=== PATIENT | female | born 1940 | race Caucasian/White ===

== ENCOUNTER 2020-06-12 12:33 | Inpatient (IN) | payer MEDICARE, BC ==
--- NOTE | 2020-06-12 13:03 | ED ---
General Adult HPI - General Chief complaint: Fall Stated complaint: fall Time Seen by Provider: 06/12/20 12:38 Source: patient, RN notes reviewed, old records reviewed Mode of arrival: EMS Limitations: no limitations - History of Present Illness Initial comments: 79-year-old female presents status post fall with left hip pain. No anticoagulation. No head or neck trauma. No loss consciousness. Patient attempted to bear weight prior to transport. She was transported by EMS, she did not want pain medication. She states she has almost no pain as long as she lies still. No abdominal pain or chest pain. No other extremity injury. - Related Data Home Medications Medication Instructions Recorded Confirmed Anastrozole [Arimidex] 1 mg PO DAILY 06/12/20 06/12/20 Insulin Glargine,Hum.rec.anlog 20 unit SQ HS 06/12/20 06/12/20 [Lantus Solostar] lisinopriL [Zestril] 2.5 mg PO DAILY 06/12/20 06/12/20 sitaGLIPtin PHOS/metFORMIN HCL 1 tab PO BID 06/12/20 06/12/20 [Janumet 50-500 mg Tablet] Allergies Allergy/AdvReac Type Severity Reaction Status Date / Time No Known Allergies Allergy Verified 06/12/20 14:06 Review of Systems ROS Statement: Those systems with pertinent positive or pertinent negative responses have been documented in the HPI. ROS Other: All systems not noted in ROS Statement are negative. Past Medical History Past Medical History: Diabetes Mellitus History of Any Multi-Drug Resistant Organisms: None Reported Past Surgical History: No Surgical Hx Reported Past Anesthesia/Blood Transfusion Reactions: Unable to Obtain Past Psychological History: No Psychological Hx Reported Smoking Status: Never smoker Past Alcohol Use History: None Reported Past Drug Use History: None Reported General Exam Limitations: no limitations General appearance: alert, in no apparent distress Head exam: Present: atraumatic, normocephalic Eye exam: Present: normal appearance, PERRL ENT exam: Present: normal exam Neck exam: Present: normal inspection. Absent: tenderness, meningismus Respiratory exam: Present: normal lung sounds bilaterally. Absent: respiratory distress, wheezes Cardiovascular Exam: Present: regular rate, normal rhythm GI/Abdominal exam: Present: soft. Absent: distended, tenderness, guarding Extremities exam: Present: other (Distal pulses intact, range of motion of the left hip is limited secondary to pain) Neurological exam: Present: alert, oriented X3, CN II-XII intact. Absent: motor sensory deficit Psychiatric exam: Present: normal affect, normal mood Skin exam: Present: warm, dry, intact. Absent: cyanosis, diaphoretic Course Vital Signs 06/12/20 12:35 Temperature 97.4 F L Pulse Rate 83 Respiratory 16 Rate Blood Pressure 158/89 O2 Sat by Pulse 96 Oximetry EKG Findings - EKG Comments: EKG Findings:: EKG: Normal sinus rhythm, no ST segment elevation, rate of 80, GA interval 192, QRS duration 70, QTC 422 Medical Decision Making - Medical Decision Making 71-year-old female with fall, left hip pain. X-ray reveals a left subcapital femoral neck fracture. Laboratory studies are obtained, showing normal electro lytes, stable hemoglobin, normal CBC. Case discussed with Jyoti hogan for orthopedics, will admit with internal medicine on consult. Patient will be kept nothing by mouth. Multiple re-evaluations, patient is not requesting any pain medication she states she has no pain when there is no movement of the hip. - Lab Data Result diagrams: 06/12/20 12:51 06/12/20 12:51 Lab Results 06/12/20 06/12/20 06/12/20 Range/Units 12:51 12:51 12:51 WBC 9.9 (3.8-10.6) k/uL RBC 4.25 (3.80-5.40) m/uL Hgb 12.8 (11.4-16.0) gm/dL Hct 40.4 (34.0-46.0) % MCV 95.1 (80.0-100.0) fL MCH 30.0 (25.0-35.0) pg MCHC 31.5 (31.0-37.0) g/dL RDW 12.9 (11.5-15.5) % Plt Count 279 (150-450) k/uL Neutrophils % 72 % Lymphocytes % 20 % Monocytes % 5 % Eosinophils % 2 % Basophils % 0 % Neutrophils # 7.1 (1.3-7.7) k/uL Lymphocytes # 2.0 (1.0-4.8) k/uL Monocytes # 0.5 (0-1.0) k/uL Eosinophils # 0.2 (0-0.7) k/uL Basophils # 0.0 (0-0.2) k/uL PT 9.6 (9.0-12.0) sec INR 0.9 (<1.2) APTT 22.8 (22.0-30.0) sec Sodium 139 (137-145) mmol/L Potassium 4.6 (3.5-5.1) mmol/L Chloride 106 (98-107) mmol/L Carbon Dioxide 27 (22-30) mmol/L Anion Gap 6 mmol/L BUN 14 (7-17) mg/dL Creatinine 0.66 (0.52-1.04) mg/dL Est GFR (CKD-EPI)AfAm >90 (>60 ml/min/1.73 sqM) Est GFR (CKD-EPI)NonAf 85 (>60 ml/min/1.73 sqM) Glucose 104 H (74-99) mg/dL Calcium 9.7 (8.4-10.2) mg/dL Total Bilirubin 0.4 (0.2-1.3) mg/dL AST 48 H (14-36) U/L ALT 60 H (4-34) U/L Alkaline Phosphatase 152 H (38-126) U/L Total Protein 7.7 (6.3-8.2) g/dL Albumin 4.0 (3.5-5.0) g/dL Disposition Clinical Impression: Fall, Fracture of femoral neck, left, closed Disposition: ADMITTED IP TO THIS [facility] Condition: Stable Is patient prescribed a controlled substance at d/c from ED?: No Referrals: Saul Grider Jr, [Primary Care Provider] - 1-2 days Decision to Admit Reason: Admit from EC Decision Date: 06/12/20 Decision Time: 14:01
[2020-06-12 13:37] LABS: Basophils % (A) 0 %; Eosinophils # (A) 0.2 k/uL (0-0.7); Eosinophils % (A) 2 %; HCT 40.4 % (34.0-46.0); HGB 12.8 gm/dL (11.4-16.0); Lymphocytes % (A) 20 %; MCHC 31.5 g/dL (31.0-37.0); MCV 95.1 fL (80.0-100.0); Mean Platelet Volume 7.2; Monocytes # (A) 0.5 k/uL (0-1.0); Monocytes % (A) 5 %; Neutrophils # (A) 7.1 k/uL (1.3-7.7); Neutrophils % (A) 72 %; Platelet Count 279 k/uL (150-450); RBC 4.25 m/uL (3.80-5.40); RDW 12.9 % (11.5-15.5); WBC 9.9 k/uL (3.8-10.6)
[2020-06-12] MEDS ORDERED: NALOXONE 0.4 MG/ML 1 ML VIAL IV PRN (13:42)
[2020-06-12 13:46] LABS: ALT 60 U/L (4-34); AST 48 U/L (14-36); African American GFR (CKD) >90 (>60 ml/min/1.73 sqM); Alkaline Phosphatase 152 U/L (38-126); Anion Gap 6 mmol/L; Blood Urea Nitrogen 14 mg/dL (7-17); Calcium 9.7 mg/dL (8.4-10.2); Carbon Dioxide 27 mmol/L (22-30); Chloride 106 mmol/L (98-107); Glucose 104 mg/dL (74-99); Non-African American GFR(CKD) 85 (>60 ml/min/1.73 sqM); Potassium 4.6 mmol/L (3.5-5.1); Sodium 139 mmol/L (137-145); Total Bilirubin 0.4 mg/dL (0.2-1.3); Total Protein 7.7 g/dL (6.3-8.2)
[2020-06-12 13:48] LABS: INR 0.9 (<1.2); Partial Thromboplastin Time 22.8 sec (22.0-30.0); Prothrombin Time 9.6 sec (9.0-12.0)
--- NOTE | 2020-06-12 14:02 | XR ---
EXAMINATION TYPE: XR Hip LT and AP Pelvis DATE OF EXAM: 06/12/2020 COMPARISON: NONE HISTORY: Trauma and pain TECHNIQUE: A single AP view of the pelvis is obtained. Two views of the left hip are obtained. FINDINGS: Subcapital proximal left femoral fracture with impaction is noted. No dislocation. Degenera tive disc changes in the visualized lumbar spine. IMPRESSION: Subcapital left femoral fracture
[2020-06-12] MEDS: HYDROmorphone 0.5 MG/0.5 ML SYRINGE IVP PRN (14:46)
[2020-06-12] MEDS ORDERED: ONDANSETRON 4 MG/2 ML VIAL IVP STA (14:47)
--- NOTE | 2020-06-12 14:56 | XR ---
EXAMINATION TYPE: XR chest 1V DATE OF EXAM: 06/12/2020 COMPARISON: NONE HISTORY: Trauma and pain TECHNIQUE: Single frontal view of the chest is obtained. FINDINGS: There is no focal air space opacity, pleural effusion, or pneumothorax seen. The cardiac silhouette size is within normal limits. The aorta is dense and likely ectatic. There are overlying artifacts. Surgical clips are present in the left axilla. Bone mineralization is reduced. The osseous structures are intact. Patient is mildly rotated. IMPRESSION: No acute process. Aorta may be ectatic.
[2020-06-12 15:18] LABS: Glucose,Whole Blood 97 mg/dL (75-99)
[2020-06-12 17:00] LABS: Glucose,Whole Blood 96 mg/dL (75-99)
[2020-06-12 20:37] LABS: Glucose,Whole Blood 195 mg/dL (75-99)
[2020-06-12] MEDS: INSULIN DETEMIR (LEVEMIR) 100 UNIT/ML SYR SQ SCH (20:44)
[2020-06-12] MEDS: metFORMIN 500 MG TAB PO SCH (20:47)
[2020-06-12] MEDS ORDERED: ALPRAZolam 0.25 MG TAB PO PRN (20:50)
[2020-06-12] MEDS ORDERED: HYDROcodone/APAP 5-325MG 1 EACH TAB PO PRN (20:50)
[2020-06-13] MEDS: ACETAMINOPHEN TAB 325 MG TAB PO PRN (02:44)
[2020-06-13 03:13] LABS: Appearance,Urine Clear (Clear); Bacteria,Urine Moderate /hpf; Bilirubin,Urine Negative (Negative); Blood,Urine Small (Negative); Color,Urine Yellow; Glucose,Urine (UA) Negative (Negative); Ketones,Urine Negative (Negative); Leukocyte Esterase,Urine Large (Negative); Mucus,Urine Rare /hpf; Nitrite,Urine Negative (Negative); Protein,Urine Negative (Negative); RBC,Urine 4 /hpf (0-5); Specific Gravity,Urine 1.018 (1.001-1.035); Squamous Epithelial Cell,Urine <1 /hpf (0-4); Urobilinogen,Urine <2.0 mg/dL (<2.0); WBC,Urine 53 /hpf (0-5)
--- NOTE | 2020-06-13 04:08 | CONS ---
CONSULTATION DATE OF SERVICE: 06/12/2020 REASON FOR CONSULTATION: Advice regarding diabetes and other multiple medical issues as well as preoperative clearance requested by Orthopedic Surgery, Dr. Lea. HISTORY OF PRESENT ILLNESS: This 79-year-old woman with a past medical history of surgery, being followed by Dr. García in the outpatient setting apparently had a trip and fall. The patient complaining of left hip pain. The patient attempted to bear the weight prior to admission, but the patient has significant pain and the patient was taken to [facility] and a closed femoral neck fracture on the left side was noted. The patient admitted for further evaluation and surgical evaluation in progress for possible surgery. There is no history of fever, rigors. No history of headache, loss of consciousness, seizures. PAST MEDICAL HISTORY: Diabetes mellitus type 2, history of breast cancer. MEDICATIONS: Medications prior to admission, home medications are: Janumet 1 tablet p.o. b.i.d., Zestril 2.5 mg daily, Lantus 20 units subcu at bedtime, Arimidex 1 mg p.o. daily. ALLERGIES: None. FAMILY HISTORY: No history of heart disease or strokes in the family. SOCIAL HISTORY: No history of alcohol intake. REVIEW OF SYSTEMS: ENT: No diminished hearing or diminished vision. CARDIOVASCULAR SYSTEM: No angina. RESPIRATORY SYSTEM: No cough or hemoptysis. GI: No nausea. : No dysuria. NERVOUS SYSTEM: No numbness or weakness. ALLERGY/IMMUNOLOGY: No asthma or hayfever. MUSCULOSKELETAL: As mentioned earlier. HEMATOLOGY/ONCOLOGY: As mentioned earlier. ENDOCRINE: As mentioned earlier, diabetes mellitus. CONSTITUTIONAL: As mentioned earlier. DERMATOLOGY: Negative. RHEUMATOLOGY: Negative. PSYCHIATRY: As mentioned earlier. PHYSICAL EXAMINATION: The patient is alert and oriented x3. Pules 102, blood pressure 138/75, respirations 16, temperature 98.5, pulse ox 96% on room air. HEENT: Conjunctivae normal. Oral mucosa moist. NECK: No jugular venous distention. No carotid bruit. No lymph node enlargement. CARDIOVASCULAR: S1, S2 muffled. RESPIRATORY: Breath sounds diminished at the bases. No rhonchi. No crackles. ABDOMEN: Soft, nontender. No mass palpable. LEGS: Status post left hip fracture. NERVOUS SYSTEM: Higher function as mentioned earlier. Moves all 4 limbs. No focal motor or sensory deficits. LYMPHATICS: No lymphadenopathy of the neck, axillae or groin. SKIN: No ulcer, rash or bleeding. JOINTS: Normal except left hip. LAB INVESTIGATIONS: Lab investigations are at this time CBC within normal limits. Glucose 104. AST 48, ALT 60, alkaline phosphatase 152. ASSESSMENT: 1. Status post left femoral neck fracture, mechanical fall. 2. Increased AST, ALT. 3. History of diabetes mellitus type 2. 4. History of breast surgery. 5. FULL CODE. 6. Obesity with body mass index 41.2. RECOMMENDATIONS AND DISCUSSION: This 79-year-old woman who presented with multiple complex medical issues, will monitor patient closely, continue the current medications. Resume the home medications. Accu- Cheks a.c. and at bedtime. DVT prophylaxis. This patient is medically stable and will be cleared for surgery and the patient will be asked to follow up with primary physician closely after discharge. Thank you Dr. Lea for letting us participate in the care of this patient. MMNEOL / DARINELN: [id number] / ANNE
[2020-06-13 04:44] LABS: African American GFR (CKD) 81.8 (60.0-200.0); Albumin 3.7 g/dL (3.80-4.90); Albumin/Globulin Ratio 1.23 (1.60-3.17); BUN/Creat Ratio 16.25 Ratio (12.00-20.00); Calcium 9.3 mg/dL (8.7-10.3); Carbon Dioxide 24.9 mmol/L (21.6-31.8); Non-African American GFR(CKD) 70.6 (60.0-200.0); Total Bilirubin 0.3 mg/dL (0.2-1.2); Total Protein 6.7 g/dL (6.2-8.2)
[2020-06-13 04:51] LABS: Anion Gap 10.1 mmol/L (4.00-12.00); Potassium 4.3 mmol/L (3.5-5.5)
[2020-06-13 06:53] LABS: Basophils % (A) 0 %; Eosinophils # (A) 0.3 k/uL (0-0.7); Eosinophils % (A) 3 %; HCT 37.6 % (34.0-46.0); HGB 11.9 gm/dL (11.4-16.0); Lymphocytes # (A) 1.7 k/uL (1.0-4.8); Lymphocytes % (A) 19 %; MCH 30.2 pg (25.0-35.0); MCHC 31.6 g/dL (31.0-37.0); MCV 95.6 fL (80.0-100.0); Mean Platelet Volume 6.8; Monocytes # (A) 0.5 k/uL (0-1.0); Monocytes % (A) 5 %; Neutrophils # (A) 6.5 k/uL (1.3-7.7); Neutrophils % (A) 72 %; Platelet Count 240 k/uL (150-450); RBC 3.93 m/uL (3.80-5.40); RDW 12.6 % (11.5-15.5); WBC 9.1 k/uL (3.8-10.6)
[2020-06-13] MEDS: ANASTROZOLE 1 MG TAB PO SCH (07:06)
[2020-06-13] MEDS: PANTOPRAZOLE 40 MG TABLET PO SCH (07:06)
[2020-06-13] MEDS: metFORMIN 500 MG TAB PO SCH (07:06)
[2020-06-13 07:11] LABS: Glucose,Whole Blood 135 mg/dL (75-99)
[2020-06-13] MEDS ORDERED: LINAGLIPTIN 5 MG TABLET PO SCH (09:00)
--- NOTE | 2020-06-13 10:58 | P.HPOR ---
History of Present Illness H&P Date: 06/13/20 This is a 79-year-old female who is admitted for left hip fracture. Patient states that she tripped on a curb and fell on 06/12/2020. Patient is seen and evaluated at bedside today with Dr. Jose Lea. Patient states that her pain is well controlled today. Patient's past medical history is significant for diabetes mellitus and breast cancer. Patient denies any fever/chills, numbness, weakness, tingling, abdominal pain, shortness of breath or chest pain. Review of Systems See HPI. Past Medical History Past Medical History: Cancer, Diabetes Mellitus History of Any Multi-Drug Resistant Organisms: None Reported Past Surgical History: Breast Surgery Past Anesthesia/Blood Transfusion Reactions: Unable to Obtain Past Psychological History: No Psychological Hx Reported Smoking Status: Never smoker Past Alcohol Use History: None Reported Past Drug Use History: None Reported Medications and Allergies Home Medications Medication Instructions Recorded Confirmed Type Anastrozole [Arimidex] 1 mg PO DAILY 06/12/20 06/12/20 History Insulin Glargine,Hum.rec.anlog 20 unit SQ HS 06/12/20 06/12/20 History [Lantus Solostar] lisinopriL [Zestril] 2.5 mg PO DAILY 06/12/20 06/12/20 History sitaGLIPtin PHOS/metFORMIN HCL 1 tab PO BID 06/12/20 06/12/20 History [Janumet 50-500 mg Tablet] Allergies Allergy/AdvReac Type Severity Reaction Status Date / Time No Known Allergies Allergy Verified 06/12/20 14:06 Physical Examination Vital signs are stable. Patient is in no acute distress and is alert and oriented 3. Calf is soft and nontender to palpation. Patient has full foot and ankle motion without pain or difficulty. Neurovascular status and circula tory status are intact. Exams of the head, neck, bilateral upper extremities and right lower extremity are within normal limits. Results X-rays of the left hip and pelvis dated 06/12/2020 shows a subcapital fracture of the left femur. - Labs Labs: Abnormal Lab Results - Last 24 Hours (Table) 06/12/20 06/12/20 06/12/20 Range/Units 12:51 20:34 21:05 Glucose 104 H 208 H (74-99) mg/dL POC Glucose (mg/dL) 195 H (75-99) mg/dL AST 48 H 53 H (14-36) U/L ALT 60 H 69 H (4-34) U/L Alkaline Phosphatase 152 H 153 H (38-126) U/L Albumin 3.70 L (3.80-4.90) g/dL Albumin/Globulin Ratio 1.23 L (1.60-3.17) g/dL Urine Blood (Negative) Ur Leukocyte Esterase (Negative) Urine WBC (0-5) /hpf Urine Bacteria (None) /hpf Urine Mucus (None) /hpf 06/12/20 06/13/20 Range/Units Unknown 07:09 Glucose (74-99) mg/dL POC Glucose (mg/dL) 135 H (75-99) mg/dL AST (14-36) U/L ALT (4-34) U/L Alkaline Phosphatase (38-126) U/L Albumin (3.80-4.90) g/dL Albumin/Globulin Ratio (1.60-3.17) g/dL Urine Blood Small H (Negative) Ur Leukocyte Esterase Large H (Negative) Urine WBC 53 H (0-5) /hpf Urine Bacteria Moderate H (None) /hpf Urine Mucus Rare H (None) /hpf Microbiology - Last 24 Hours (Table) 06/12/20 Unknown Urine Culture - Preliminary Urine,Voided H & H 06/12/20 06/13/20 Range/Units 12:51 05:55 Hgb 12.8 11.9 (11.4-16.0) gm/dL Hct 40.4 37.6 (34.0-46.0) % Coagulation 06/12/20 Range/Units 12:51 INR 0.9 (<1.2) Result Diagrams: 06/13/20 05:55 06/12/20 21:05 Assessment and Plan (1) Fall Current Visit: Yes Status: Acute Code(s): W19.XXXA - UNSPECIFIED FALL, INITIAL ENCOUNTER SNOMED Code(s): 2454998 (2) Fracture of femoral neck, left, closed Current Visit: Yes Status: Acute Code(s): S72.002A - FRACTURE OF UNSP PART OF NECK OF LEFT FEMUR, INIT SNOMED Code(s): 523271397 Plan: 1. Patient is to be NPO. 2. Continue pain control and nonweightbearing to left lower extremity. 3. Planning for for left hip hemiarthroplasty today, 06/13/2020, pending patient consent. Patient is medically cleared per Dr. Pinzon.
[2020-06-13 11:36] LABS: Glucose,Whole Blood 143 mg/dL (75-99)
[2020-06-13] MEDS ORDERED: KETOROLAC 15 MG/ML 1 ML VIAL IVP PRN (15:34)
--- NOTE | 2020-06-13 16:26 | P.PN ---
Subjective She is admitted for a left femoral neck fracture patient will undergo surgical correction tomorrow. Constitutional: Denied any fatigue denied any fever. Cardio vascular: denied any chest pain, palpitations Gastrointestinal denied any nausea vomiting Pulmonary: Denied any shortness of breath cough Neurologic denied any new focal deficits All inpatient medications were reviewed and appropriate changes in these medications as dictated in the interval history and assessment and plan. Objective - Vital Signs Vital signs: Vital Signs Temp 98.3 F 06/13/20 15:00 Pulse 93 06/13/20 15:00 Resp 20 06/13/20 15:00 BP 139/80 06/13/20 15:00 Pulse Ox 91 L 06/13/20 15:00 Intake & Output 06/12/20 06/13/20 06/13/20 18:59 06:59 18:59 Output Total 1300 400 Balance -1300 -400 Weight 108.862 kg Output: Urine 1300 400 Other: Voiding Method Indwelling Catheter Indwelling Catheter Indwelling Catheter # Voids 1 - Exam PHYSICAL EXAMINATION: GENERAL: The patient is alert and oriented x3, not in any acute distress. Well developed, well nourished. HEENT: Pupils are round and equally reacting to light. EOMI. No scleral icterus. No conjunctival pallor. Normocephalic, atraumatic. No pharyngeal erythema. No thyromegaly. CARDIOVASCULAR: S1 and S2 present. No murmurs, rubs, or gallops. PULMONARY: Chest is clear to auscultation, no wheezing or crackles. ABDOMEN: Soft, nontender, nondistended, normoactive bowel sounds. No palpable organomegaly. MUSCULOSKELETAL: Deferred to orthopedic surgery EXTREMITIES: No cyanosis, clubbing, or pedal edema. NEUROLOGICAL: Gross neurological examination did not reveal any focal deficits. SKIN: No rashes. - Labs CBC & Chem 7: 06/13/20 05:55 06/12/20 21:05 Labs: Abnormal Lab Results - Last 24 Hours (Table) 06/12/20 06/12/20 06/12/20 Range/Units 20:34 21:05 Unknown Glucose 208 H (70-110) mg/dL POC Glucose (mg/dL) 195 H (75-99) mg/dL AST 53 H (13-35) U/L ALT 69 H (8-44) U/L Alkaline Phosphatase 153 H (41-126) U/L Albumin 3.70 L (3.80-4.90) g/dL Albumin/Globulin Ratio 1.23 L (1.60-3.17) g/dL Urine Blood Small H (Negative) Ur Leukocyte Esterase Large H (Negative) Urine WBC 53 H (0-5) /hpf Urine Bacteria Moderate H (None) /hpf Urine Mucus Rare H (None) /hpf 06/13/20 06/13/20 Range/Units 07:09 11:34 Glucose (70-110) mg/dL POC Glucose (mg/dL) 135 H 143 H (75-99) mg/dL AST (13-35) U/L ALT (8-44) U/L Alkaline Phosphatase (41-126) U/L Albumin (3.80-4.90) g/dL Albumin/Globulin Ratio (1.60-3.17) g/dL Urine Blood (Negative) Ur Leukocyte Esterase (Negative) Urine WBC (0-5) /hpf Urine Bacteria (None) /hpf Urine Mucus (None) /hpf Microbiology - Last 24 Hours (Table) 06/12/20 Unknown Urine Culture - Preliminary Urine,Voided Assessment and Plan Plan: -Mechanical fall and a left femoral neck fracture: Surgical intervention as per primary service and patient will be started on DVT prophylaxis with subcu Heparin. -Type 2 diabetes mellitus patient oral hypoglycemic agents were discontinued patient will be continued on her home dose of Lantus since her blood sugars are already high even though she is nothing by mouth today I believe patient will not be hypoglycemic and patient was started on sliding scale as well -Hypertension: To prevent perioperative hypotension I'll hold off on lisinopril -History of breast cancer history of breast surgery in the past. Patient is on anastrozole which will be continued
[2020-06-13 17:11] LABS: Glucose,Whole Blood 174 mg/dL (75-99)
[2020-06-13] MEDS: INSULIN ASPART (NovoLOG) 100 UNIT/ML VIAL SQ SCH ×2 (17:54→20:38)
[2020-06-13] MEDS ORDERED: LIDOCAINE 1% (10MG/ML) FOR IV START INTRADERMA PRN (18:29)
[2020-06-13 20:31] LABS: Glucose,Whole Blood 211 mg/dL (75-99)
[2020-06-13] MEDS: FAMOTIDINE 20 MG TAB PO SCH (20:31)
[2020-06-13] MEDS: HEPARIN SODIUM,PORCINE 5,000 UNIT/ML 1 ML VIAL SQ SCH (20:31)
[2020-06-13] MEDS: INSULIN DETEMIR (LEVEMIR) 100 UNIT/ML SYR SQ SCH (20:39)
[2020-06-13] MEDS: LACTATED RINGERS 1,000 ML IV SCH (21:36)
[2020-06-14] MEDS: HYDROmorphone 0.5 MG/0.5 ML SYRINGE IVP PRN ×3 (00:36→21:41)
[2020-06-14] MEDS ORDERED: DEXAMETHASONE SOD PHOSPHATE 10 MG/ML 1 ML VIAL IV ONE ×2 (05:00→16:32)
[2020-06-14 07:23] LABS: Glucose,Whole Blood 162 mg/dL (75-99)
--- NOTE | 2020-06-14 08:41 | P.PN ---
Subjective She is admitted for a left femoral neck fracture patient will undergo surgical correction tomorrow. 06/14/2020 Patient will undergo surgical intervention today postoperatively patient is expected to have low blood pressure which will be treated with IV fluids Constitutional: Denied any fatigue denied any fever. Cardio vascular: denied any chest pain, palpitations Gastrointestinal denied any nausea vomiting Pulmonary: Denied any shortness of breath cough Neurologic denied any new focal deficits All inpatient medications were reviewed and appropriate changes in these medications as dictated in the interval history and assessment and plan. Objective - Vital Signs Vital signs: Vital Signs Temp 98.3 F 06/14/20 07:23 Pulse 94 06/14/20 07:23 Resp 17 06/14/20 07:23 BP 116/72 06/14/20 07:23 Pulse Ox 94 L 06/14/20 07:23 Intake & Output 06/13/20 06/14/20 06/14/20 18:59 06:59 18:59 Intake Total 490 Output Total 400 Balance -400 490 Intake: Intake, IV Titration 40 Amount Lactated Ringers 1,000 ml 40 @ 20 mls/hr IV .Q24H OLAMIDE Rx#:[id number] Oral 450 Output: Urine 400 Other: Voiding Method Indwelling Catheter Indwelling Catheter # Voids 1 - Exam PHYSICAL EXAMINATION: GENERAL: The patient is alert and oriented x3, not in any acute distress. Well developed, well nourished. HEENT: Pupils are round and equally reacting to light. EOMI. No scleral icterus. No conjunctival pallor. Normocephalic, atraumatic. No pharyngeal erythema. No thyromegaly. CARDIOVASCULAR: S1 and S2 present. No murmurs, rubs, or gallops. PULMONARY: Chest is clear to auscultation, no wheezing or crackles. ABDOMEN: Soft, nontender, nondistended, normoactive bowel sounds. No palpable organomegaly. MUSCULOSKELETAL: Deferred to orthopedic surgery EXTREMITIES: No cyanosis, clubbing, or pedal edema. NEUROLOGICAL: Gross neurological examination did not reveal any focal deficits. SKIN: No rashes. - Labs CBC & Chem 7: 06/13/20 05:55 06/12/20 21:05 Labs: Abnormal Lab Results - Last 24 Hours (Table) 06/13/20 06/13/20 06/13/20 Range/Units 11:34 17:07 20:29 POC Glucose (mg/dL) 143 H 174 H 211 H (75-99) mg/dL 06/14/20 Range/Units 07:22 POC Glucose (mg/dL) 162 H (75-99) mg/dL Microbiology - Last 24 Hours (Table) 06/12/20 Unknown Urine Culture - Preliminary Urine,Voided Assessment and Plan Plan: -Mechanical fall and a left femoral neck fracture: Surgical intervention as per primary service and patient is on subcu Heparin for DVT prophylaxis for now postoperative DVT prophylaxis as per primary service -Type 2 diabetes mellitus patient oral hypoglycemic agents were discontinued patient will be continued on her home dose of Lantus , her blood sugars are well controlled at this time -Hypertension: To prevent perioperative hypotension I'll hold off on lisinopril -History of breast cancer history of breast surgery in the past. Patient is on anastrozole which will be continued
[2020-06-14] MEDS: INSULIN ASPART (NovoLOG) 100 UNIT/ML VIAL SQ SCH ×4 (08:47→21:05)
[2020-06-14] MEDS: PANTOPRAZOLE 40 MG TABLET PO SCH (08:54)
[2020-06-14] MEDS: ANASTROZOLE 1 MG TAB PO SCH (08:55)
[2020-06-14] MEDS: FAMOTIDINE 20 MG TAB PO SCH ×2 (08:55→21:04)
[2020-06-14] MEDS: HEPARIN SODIUM,PORCINE 5,000 UNIT/ML 1 ML VIAL SQ SCH (08:56)
[2020-06-14 11:48] LABS: Glucose,Whole Blood 144 mg/dL (75-99)
[2020-06-14] MEDS ORDERED: HYDROmorphone 0.5 MG/0.5 ML SYRINGE IVP PRN ×3 (16:08)
[2020-06-14] MEDS ORDERED: NALOXONE 0.4 MG/ML 1 ML VIAL IV PRN (16:08)
[2020-06-14] MEDS ORDERED: ONDANSETRON 4 MG/2 ML VIAL IVP PRN (16:08)
[2020-06-14] MEDS ORDERED: MAGNESIUM HYDROXIDE 2,400 MG/10 ML CUP PO PRN (16:08)
[2020-06-14] MEDS ORDERED: HYDROcodone/APAP 5-325MG 1 EACH TAB PO PRN ×2 (16:13)
[2020-06-14] MEDS ORDERED: IV FLUID CONTINUATION 700 ML IV ONE (16:15)
[2020-06-14 16:22] LABS: Glucose,Whole Blood 138 mg/dL (75-99)
[2020-06-14] MEDS ORDERED: ONDANSETRON 4 MG/2 ML VIAL IVP ONE (16:31)
[2020-06-14] MEDS ORDERED: diphenhydrAMINE 50 MG/ML 1 ML VIAL ONE (16:32)
[2020-06-14] MEDS ORDERED: PROPOFOL 10 MG/ML 20 ML VIAL IV ONE (16:32)
[2020-06-14] MEDS ORDERED: MIDAZOLAM 2 MG/2 ML VIAL ONE (16:32)
[2020-06-14] MEDS ORDERED: KETAMINE 10 MG/ML 20 ML VIAL ONE (16:32)
[2020-06-14] MEDS ORDERED: SODIUM CHLORIDE 0.9% 50 ML with ceFAZolin 3,000 MG IV ONE ×2 (16:56)
[2020-06-14] MEDS ORDERED: ceFAZolin 1,000 MG in SODIUM CHLORIDE 0.9% 1,000 ML IRRIGATION ONE (17:02)
--- NOTE | 2020-06-14 17:29 | P.OP ---
Date of Procedure: 06/14/20 Preoperative Diagnosis: Subcapital fracture left hip Postoperative Diagnosis: Subcapital fracture left hip Procedure(s) Performed: Left hip hemiarthroplasty Implants: Collins and nephew Polarstem size 4 standard Collins & Nephew tandem unipolar, 45 mm Collins & Nephew tandem unipolar 12/14 taper sleeve, +0 mm All components were press-fit. Anesthesia: spinal Surgeon: Jose Lea Residential Support Worker #1: Jyoti Lemus Estimated Blood Loss (ml): 100 Pathology: other (Femoral head) Condition: stable Disposition: PACU Indications for Procedure: This is a 79-year-old female that slipped and fell at home and sustained a subcapital fracture of her left hip. After discussing the surgical nonsurgical treatment options with her and her son at length, I recommended a left hip hemiarthroplasty and informed consent was obtained. Operative Findings: The operative findings are consistent with a subcapital fracture of the left hip Description of Procedure: Patient was seen and evaluated in the preoperative area, consent was reviewed and the operative site was marked with a skin marker. Patient was then brought to the operating room and given 2 g of Ancef intravenously. A spinal anesthetic was administered by the anesthesia department. Patient was then placed in a lateral decubitus position and held with a Montral hip positioner. The bony prominences were well-padded and an axillary roll was placed. The hip was then prepped and draped in the usual sterile fashion. A universal timeout was then performed which confirmed the patient's name, surgical site, ALLERGIES, and procedure. A standard anterolateral approach the hip was performed. Skin and subcutaneous tissues were sharply incised with an incision centered over the tip of the greater trochanter. The incision was carefully dissected down to the fascia. The fascia was then split in line with skin incision and a Charnley retractor was gently placed. The abductors were then identified, and the anterior one third of the abductors were released off the trochanter and one large sleeve. The fracture hematoma was evacuated and the proximal femur was exposed by externally rotating the femur. The fracture site was readily visualized. Next, using an osteotomy guide, the proximal femur was osteotomized at the appropriate level of the above the lesser trochanter. This bone was then removed. Atte ntion was then turned to the femoral head. Using a corkscrew, the femoral head was removed from the acetabulum without incident. The acetabulum was inspected, and found to have no significant arthrosis. Femoral head was then measured. Attention was then redirected to the femur. Proximal femur was re-exposed and a box osteotome was used to lateralize the proximal femur. A shore hand dredge or barge was then used to locate the femoral canal. Sequential broaching was then performed to the appropriate size. The calcar was then planed and trial head and neck were placed. The hip was then gently reduced. Leg lengths were checked and found to be equal. Hip was then taken through a full range of motion was stable throughout. The hip was then gently dislocated with the aid of a bone hook. The trial head and neck were then removed. The femoral broach was then inspected and found to have a secure fit. The broach was then removed. The hip was then copiously irrigated with antibiotic solution with a pulse lavage. Components were then opened and the femoral stem was then impacted into the proximal femur. The trunnion was cleaned and dried, and the femoral head and neck were then impacted. Hip was again gently reduced. Again leg lengths were checked and found to be equal, and the hip was taken through a full range of motion and found to be stable. The hip was again irrigated with pulsatile lavage, then followed by the Irrrisept solution. The abductors were then repaired through drill holes to the bone to the greater trochanter, utilizing #5 Ethibond suture. Next the fascia was repaired with #2 strata fix suture. The subcutaneous tissue was then repaired with 3-0 Vicryl. The subcuticular tissue was then repaired with 3-0 strata fix suture. Skin was then closed with Dermabond tape. A sterile dressing was then applied and the patient was transported to the recovery room in stable condition. Residential Support Worker MICHI Lara was required due to the complexity of surgery the need for skilled surgical aide. She assisted with positioning the patient, draping the patient, retraction during the surgery, and closure of the wound.
[2020-06-14] MEDS ORDERED: LACTATED RINGERS 1,000 ML IV ONE (17:40)
[2020-06-14 18:43] LABS: Glucose,Whole Blood 158 mg/dL (75-99)
[2020-06-14] MEDS: LACTATED RINGERS 1,000 ML IV SCH (19:53)
--- NOTE | 2020-06-14 19:54 | XR ---
Left hip HISTORY: Postop Single frontal view of the left hip Patient is status post left hip arthroplasty. There is anatomic alignment. Lucency is present in the soft tissues. Detail may be limited by patient body habitus. IMPRESSION: Orthopedic follow-up.
[2020-06-14 20:28] LABS: Glucose,Whole Blood 167 mg/dL (75-99)
[2020-06-14 20:43] LABS: Basophils % (A) 0 %; Eosinophils # (A) 0.1 k/uL (0-0.7); Eosinophils % (A) 1 %; HCT 39.6 % (34.0-46.0); HGB 12.8 gm/dL (11.4-16.0); Lymphocytes # (A) 0.6 k/uL (1.0-4.8); Lymphocytes % (A) 5 %; MCH 30.9 pg (25.0-35.0); MCHC 32.2 g/dL (31.0-37.0); MCV 95.9 fL (80.0-100.0); Mean Platelet Volume 6.9; Monocytes # (A) 0.4 k/uL (0-1.0); Monocytes % (A) 3 %; Neutrophils % (A) 90 %; Platelet Count 216 k/uL (150-450); RBC 4.13 m/uL (3.80-5.40); RDW 12.4 % (11.5-15.5); WBC 12.2 k/uL (3.8-10.6)
[2020-06-14] MEDS: SODIUM CHLORIDE 0.9% 1,000 ML IV SCH (21:03)
[2020-06-14] MEDS: INSULIN DETEMIR (LEVEMIR) 100 UNIT/ML SYR SQ SCH (21:04)
[2020-06-14] MEDS: SENNOSIDES-DOCUSATE SODIUM 1 EACH TAB PO SCH (21:04)
[2020-06-15 07:13] LABS: Glucose,Whole Blood 171 mg/dL (75-99)
[2020-06-15] MEDS: SODIUM CHLORIDE 0.9% 1,000 ML IV SCH ×2 (07:33→20:52)
[2020-06-15] MEDS: INSULIN ASPART (NovoLOG) 100 UNIT/ML VIAL SQ SCH ×4 (07:34→20:49)
[2020-06-15] MEDS: ANASTROZOLE 1 MG TAB PO SCH (07:35)
[2020-06-15] MEDS: PANTOPRAZOLE 40 MG TABLET PO SCH (07:35)
[2020-06-15] MEDS: FAMOTIDINE 20 MG TAB PO SCH ×2 (07:35→20:53)
[2020-06-15] MEDS: RIVAROXABAN 10 MG TAB PO SCH (07:35)
[2020-06-15 07:46] LABS: HCT 36.6 % (34.0-46.0); HGB 11.7 gm/dL (11.4-16.0); MCH 30.3 pg (25.0-35.0); MCHC 31.9 g/dL (31.0-37.0); MCV 94.8 fL (80.0-100.0); Mean Platelet Volume 6.9; Platelet Count 218 k/uL (150-450); RBC 3.86 m/uL (3.80-5.40); RDW 12.7 % (11.5-15.5); WBC 10.8 k/uL (3.8-10.6)
[2020-06-15] MEDS ORDERED: HYDROPHILIC CREAM 180 GM TUBE TOPICAL SCH (09:00)
[2020-06-15 11:30] LABS: Glucose,Whole Blood 175 mg/dL (75-99)
--- NOTE | 2020-06-15 11:45 | P.CONS ---
History of Present Illness - Reason for Consult Consult date: 06/15/20 wound care - History of Present Illness this is a 79-year-old patient being seen by the wound care center on 4 S. for nonhealing ulceration to the coccyx. Patient was admitted for a left hip fracture and underwent surgery for repair. She is chest medical history significant for diabetes and breast cancer. Patient was found to be sitting in a chair. Patient states that she doesn't have any pain or discomfort to the ul cer. She was on aware of the ulcer Review of Systems Review Of Systems: Constitutional: No fever, no chills, no night sweats. No weight change. No wea kness, fatigue or lethargy. No daytime sleepiness. Integumentary:reports wounds, no lesions. No rash or pruritus. No unusual bruising. No change in hair or nails. Past Medical History Past Medical History: Cancer, Diabetes Mellitus History of Any Multi-Drug Resistant Organisms: None Reported Past Surgical History: Breast Surgery Past Anesthesia/Blood Transfusion Reactions: Unable to Obtain Past Psychological History: No Psychological Hx Reported Smoking Status: Never smoker Past Alcohol Use History: None Reported Past Drug Use History: None Reported Medications and Allergies Home Medications Medication Instructions Recorded Confirmed Type Anastrozole [Arimidex] 1 mg PO DAILY 06/12/20 06/12/20 History Insulin Glargine,Hum.rec.anlog 20 unit SQ HS 06/12/20 06/12/20 History [Lantus Solostar] lisinopriL [Zestril] 2.5 mg PO DAILY 06/12/20 06/12/20 History sitaGLIPtin PHOS/metFORMIN HCL 1 tab PO BID 06/12/20 06/12/20 History [Janumet 50-500 mg Tablet] Allergies Allergy/AdvReac Type Severity Reaction Status Date / Time No Known Allergies Allergy Verified 06/12/20 14:06 Physical Exam Vitals: Vital Signs Temp Pulse Resp BP Pulse Ox 06/15/20 07:00 97.9 F 79 20 148/83 94 L 06/15/20 01:00 98.5 F 84 20 144/78 94 L 06/15/20 00:00 20 06/14/20 21:58 88 126/82 92 L 06/14/20 21:43 98 142/86 92 L 06/14/20 21:28 95 159/96 89 L 06/14/20 21:13 94 157/93 95 06/14/20 20:59 86 154/80 93 L 06/14/20 20:43 80 147/86 93 L 06/14/20 20:28 78 147/82 92 L 06/14/20 20:13 83 146/84 89 L 06/14/20 20:00 79 20 06/14/20 19:25 98.5 F 79 20 127/79 94 L 06/14/20 18:35 66 16 123/60 97 06/14/20 18:20 65 16 105/61 98 06/14/20 18:05 97.6 F 84 16 120/54 94 L 06/14/20 16:17 97.9 F 84 16 149/67 94 L 06/14/20 13:58 97.3 F L 83 17 139/77 94 L 06/14/20 12:09 98.2 F 86 17 118/76 92 L Intake and Output 06/14/20 06/15/20 06/15/20 22:59 06:59 14:59 Intake Total 1611 560 Output Total 450 700 Balance 1161 -140 Intake: IV 1051 Intake, IV Titration 560 560 Amount Sodium Chloride 0.9% 1, 560 560 000 ml @ 70 mls/hr IV . [id number] [facility] Rx#:[id number] Output: Urine 350 700 Estimated Blood Loss 100 Other: Voiding Method Indwelling Catheter Indwelling Catheter Indwelling Catheter Weight 108.862 kg Physical exam: General Appearance: Alert, cooperative, no distress, appears stated age. Skin: full-thickness stage II pressure ulcer coccyx with fat layer exposure, moderate granulation seen throughout wound bed, moderate slough noted. Wound shows excoriation and redness. all other Skin color, texture, tugor normal, no rashes or lesions. Neurologic: Alert oriented x3 Results CBC & Chem 7: 06/15/20 07:15 06/12/20 21:05 Labs: Abnormal Lab Results - Last 24 Hours (Table) 06/14/20 06/14/20 06/14/20 Range/Units 11:46 16:20 18:41 WBC (3.8-10.6) k/uL Neutrophils # (1.3-7.7) k/uL Lymphocytes # (1.0-4.8) k/uL POC Glucose (mg/dL) 144 H 138 H 158 H (75-99) mg/dL 06/14/20 06/14/20 06/15/20 Range/Units 20:10 20:25 07:02 WBC 12.2 H (3.8-10.6) k/uL Neutrophils # 11.0 H (1.3-7.7) k/uL Lymphocytes # 0.6 L (1.0-4.8) k/uL POC Glucose (mg/dL) 167 H 171 H (75-99) mg/dL 06/15/20 06/15/20 Range/Units 07:15 11:25 WBC 10.8 H (3.8-10.6) k/uL Neutrophils # (1.3-7.7) k/uL Lymphocytes # (1.0-4.8) k/uL POC Glucose (mg/dL) 175 H (75-99) mg/dL Microbiology - Last 24 Hours (Table) 06/12/20 Unknown Urine Culture - Final Urine,Voided Klebsiella pneumoniae Assessment and Plan (1) Pressure injury of coccygeal region, stage 2 Current Visit: Yes Status: Acute Code(s): L89.152 - PRESSURE ULCER OF SACRAL REGION, STAGE 2 SNOMED Code(s): 578697801 (2) Diabetes with skin ulcer Current Visit: Yes Status: Acute Code(s): E11.622 - TYPE 2 DIABETES MELLITUS WITH OTHER SKIN ULCER; L98.499 - NON-PRESSURE CHRONIC ULCER OF SKIN OF SITES W UNSP SEVERITY SNOMED Code(s): 03662655 Plan: apply triad cream and foam border gauze Friday. Utilize a cu shion for sitting. thank you For the Consultation Any Questions with Contact the [facility] DNP note has been reviewed and discussed with Dr. Aguero and the impression and plan of care has been directed as dictated.
[2020-06-15 12:17] LABS: African American GFR (CKD) 101.2 (60.0-200.0); BUN/Creat Ratio 21.67 Ratio (12.00-20.00); Calcium 8.8 mg/dL (8.7-10.3); Non-African American GFR(CKD) 87.3 (60.0-200.0); Potassium 4.3 mmol/L (3.5-5.5)
--- NOTE | 2020-06-15 12:46 | P.PN ---
Subjective She is admitted for a left femoral neck fracture patient will undergo surgical correction tomorrow. 06/14/2020 Patient will undergo surgical intervention today postoperatively patient is expected to have low blood pressure which will be treated with IV fluids 06/15/2020 Patient overall clinically doing well. Patient can be discharged from [facility] to either home or to subacute rehabilitation which showed is appropriate. Patient is presently on Rivaroxaban for DVT prophylaxis Constitutional: Denied any fatigue denied any fever. Cardio vascular: denied any chest pain, palpitations Gastrointestinal denied any nausea vomiting Pulmonary: Denied any shortness of breath cough Neurologic denied any new focal deficits All inpatient medications were reviewed and appropriate changes in these medications as dictated in the interval history and assessment and plan. Objective - Vital Signs Vital signs: Vital Signs Temp 97.9 F 06/15/20 07:00 Pulse 79 06/15/20 07:00 Resp 20 06/15/20 07:00 BP 148/83 06/15/20 07:00 Pulse Ox 94 L 06/15/20 07:00 Intake & Output 06/14/20 06/15/20 06/15/20 18:59 06:59 18:59 Intake Total 1051 1120 Output Total 1050 700 Balance 1 420 Weight 108.862 kg Intake: IV 1051 Intake, IV Titration 1120 Amount Sodium Chloride 0.9% 1, 1120 000 ml @ 70 mls/hr IV . [id number] [facility] Rx#:[id number] Output: Urine 950 700 Estimated Blood Loss 100 Other: Voiding Method Indwelling Catheter Indwelling Catheter Indwelling Catheter - Exam PHYSICAL EXAMINATION: GENERAL: The patient is alert and oriented x3, not in any acute distress. Well developed, well nourished. HEENT: Pupils are round and equally reacting to light. EOMI. No scleral icterus. No conjunctival pallor. Normocephalic, atraumatic. No pharyngeal erythema. No thyromegaly. CARDIOVASCULAR: S1 and S2 present. No murmurs, rubs, or gallops. PULMONARY: Chest is clear to auscultation, no wheezing or crackles. ABDOMEN: Soft, nontender, nondistended, normoactive bowel sounds. No palpable organomegaly. MUSCULOSKELETAL: Deferred to orthopedic surgery EXTREMITIES: No cyanosis, clubbing, or pedal edema. NEUROLOGICAL: Gross neurological examination did not reveal any focal deficits. SKIN: No rashes. - Labs CBC & Chem 7: 06/15/20 07:15 06/15/20 07:15 Labs: Abnormal Lab Results - Last 24 Hours (Table) 06/14/20 06/14/20 06/14/20 Range/Units 16:20 18:41 20:10 WBC 12.2 H (3.8-10.6) k/uL Neutrophils # 11.0 H (1.3-7.7) k/uL Lymphocytes # 0.6 L (1.0-4.8) k/uL BUN/Creatinine Ratio (12.00-20.00) Ratio Glucose (70-110) mg/dL POC Glucose (mg/dL) 138 H 158 H (75-99) mg/dL 06/14/20 06/15/20 06/15/20 Range/Units 20:25 07:02 07:15 WBC 10.8 H (3.8-10.6) k/uL Neutrophils # (1.3-7.7) k/uL Lymphocytes # (1.0-4.8) k/uL BUN/Creatinine Ratio (12.00-20.00) Ratio Glucose (70-110) mg/dL POC Glucose (mg/dL) 167 H 171 H (75-99) mg/dL 06/15/20 06/15/20 Range/Units 07:15 11:25 WBC (3.8-10.6) k/uL Neutrophils # (1.3-7.7) k/uL Lymphocytes # (1.0-4.8) k/uL BUN/Creatinine Ratio 21.67 H (12.00-20.00) Ratio Glucose 170 H (70-110) mg/dL POC Glucose (mg/dL) 175 H (75-99) mg/dL Microbiology - Last 24 Hours (Table) 06/12/20 Unknown Urine Culture - Final Urine,Voided Klebsiella pneumoniae Assessment and Plan Plan: -Mechanical fall and a left femoral neck fracture: Patient is status post left hip arthroplasty. Clinically doing well. Anti-correlation as mentioned above -Type 2 diabetes mellitus patient can be resumed on her home regimen -Hypertension: Patient can be resumed on lisinopril -Stage II sacral liquid results of which wound care evaluated the patient -History of breast cancer history of breast surgery in the past. Patient is on anastrozole which will be continued
[2020-06-15 16:13] LABS: Hemoglobin A1C 6.1 % (4.0-6.0)
[2020-06-15 16:50] LABS: Glucose,Whole Blood 152 mg/dL (75-99)
--- NOTE | 2020-06-15 16:57 | P.PN ---
Subjective Progress Note Date: 06/15/20 This is a 79 year-old female who is status post left hip hemiarthroplasty. This is postoperative day #1 and patient is seen and evaluated at bedside today. Patient states that her pain is well-controlled and she has been able to transfer from her bed to a chair. Patient denies any new complaints today. Objective - Vital Signs Vital signs: Vital Signs Temp 97.9 F 06/15/20 07:00 Pulse 79 06/15/20 07:00 Resp 20 06/15/20 07:00 BP 148/83 06/15/20 07:00 Pulse Ox 94 L 06/15/20 07:00 Intake & Output 06/14/20 06/15/20 06/15/20 18:59 06:59 18:59 Intake Total 1051 1120 Output Total 1050 700 Balance 1 420 Weight 108.862 kg Intake: IV 1051 Intake, IV Titration 1120 Amount Sodium Chloride 0.9% 1, 1120 000 ml @ 70 mls/hr IV . [id number] [facility] Rx#:[id number] Output: Urine 950 700 Estimated Blood Loss 100 Other: Voiding Method Indwelling Catheter Indwelling Catheter Indwelling Catheter - Exam On exam patient is lying comfortably in a chair in no acute distress. Patient is alert and oriented x3. Dressing is clean, dry and intact. No drainage. No erythema. Calf is soft and nontender to palpation. Sensation intact. Patient has full range of motion of the foot and ankle. Neurovascular status and circulatory status are intact. - Labs CBC & Chem 7: 06/15/20 07:15 06/15/20 07:15 Labs: Abnormal Lab Results - Last 24 Hours (Table) 06/14/20 06/14/20 06/14/20 Range/Units 16:20 18:41 20:10 WBC 12.2 H (3.8-10.6) k/uL Neutrophils # 11.0 H (1.3-7.7) k/uL Lymphocytes # 0.6 L (1.0-4.8) k/uL BUN/Creatinine Ratio (12.00-20.00) Ratio Glucose (70-110) mg/dL POC Glucose (mg/dL) 138 H 158 H (75-99) mg/dL 06/14/20 06/15/20 06/15/20 Range/Units 20:25 07:02 07:15 WBC 10.8 H (3.8-10.6) k/uL Neutrophils # (1.3-7.7) k/uL Lymphocytes # (1.0-4.8) k/uL BUN/Creatinine Ratio (12.00-20.00) Ratio Glucose (70-110) mg/dL POC Glucose (mg/dL) 167 H 171 H (75-99) mg/dL 06/15/20 06/15/20 Range/Units 07:15 11:25 WBC (3.8-10.6) k/uL Neutrophils # (1.3-7.7) k/uL Lymphocytes # (1.0-4.8) k/uL BUN/Creatinine Ratio 21.67 H (12.00-20.00) Ratio Glucose 170 H (70-110) mg/dL POC Glucose (mg/dL) 175 H (75-99) mg/dL Microbiology - Last 24 Hours (Table) 06/12/20 Unknown Urine Culture - Final Urine,Voided Klebsiella pneumoniae Assessment and Plan (1) Fall Current Visit: Yes Status: Acute Code(s): W19.XXXA - UNSPECIFIED FALL, INITIAL ENCOUNTER SNOMED Code(s): 9643045 (2) Fracture of femoral neck, left, closed Current Visit: Yes Status: Acute Code(s): S72.002A - FRACTURE OF UNSP PART OF NECK OF LEFT FEMUR, INIT SNOMED Code(s): 843621790 (3) S/P hip hemiarthroplasty Current Visit: Yes Status: Acute Code(s): Z96.649 - PRESENCE OF UNSPECIFIED ARTIFICIAL HIP JOINT SNOMED Code(s): 848605051 Plan: Weightbearing as tolerated with walker. Leave dressing intact. Dressing may be removed by patient or nurse in 10 days. May shower with dressing on. Xarelto for DVT prophylaxis. Continue physical therapy. Patient is being managed by wound care team for Decubitus ulcer that was found when prepping the patient for surgery. Anticipate discharge to [facility] in the next 24-48 hours.
[2020-06-15 20:40] LABS: Glucose,Whole Blood 127 mg/dL (75-99)
[2020-06-15] MEDS: INSULIN DETEMIR (LEVEMIR) 100 UNIT/ML SYR SQ SCH (20:52)
[2020-06-15] MEDS: SENNOSIDES-DOCUSATE SODIUM 1 EACH TAB PO SCH (20:53)
[2020-06-16 06:59] VITALS: BP 130/70; PULSE 96; RESP 15; TEMP 99.2
[2020-06-16 07:09] LABS: Glucose,Whole Blood 165 mg/dL (75-99)
[2020-06-16] MEDS: FAMOTIDINE 20 MG TAB PO SCH (07:37)
[2020-06-16] MEDS: ACETAMINOPHEN TAB 325 MG TAB PO PRN (07:38)
[2020-06-16] MEDS: INSULIN ASPART (NovoLOG) 100 UNIT/ML VIAL SQ SCH (07:38)
[2020-06-16] MEDS: PANTOPRAZOLE 40 MG TABLET PO SCH (07:38)
[2020-06-16] MEDS: RIVAROXABAN 10 MG TAB PO SCH (07:38)
--- NOTE | 2020-06-16 09:09 | P.DS ---
Providers Date of admission: 06/12/20 13:42 Expected date of discharge: 06/16/20 Attending physician: Jose Lea Consults: 06/12/20 13:43 Consult Physician Routine Consulting Provider: Marissa Pinzon Consult Reason/Comments: hip fracture Do you want consulting provider notified?: Yes Primary care physician: Addie Ham Raquel - Discharge Diagnosis(es) (1) Fall Current Visit: Yes Status: Acute (2) Fracture of femoral neck, left, closed Current Visit: Yes Status: Acute (3) S/P hip hemiarthroplasty Current Visit: Yes Status: Acute Hospital Course: This is a 79-year-old female who sustained a fracture of the left hip after a fall. The patient presented for evaluation at [facility]. After discussion and consideration patient elects to proceed with left hip hemiarthroplasty. The patient is seen preoperatively by Dr. Lea and cleared for surgery by internal medicine. Patient is admitted to [facility] on 06/12/2020 and left hip huber arthroplasty is performed on 06/15/2020. The procedures performed without complication or sequelae. The patient is doing well postoperatively. Labs and vital signs are stable on day of discharge. Patient was evaluated by wound care team for development of decubitus ulcer that was found when prepping the patient for surgery. On day of discharge patient's hip incision is healing well. There is minimal erythema. There is no drainage noted at this time. There is minimal soft tissue swelling to the hip and thigh. Patient has full foot and ankle motion without difficulty or pain. Neurovascular status to the left lower extremity is intact. Patient is discharged to rehabilitation in good condition. Please see med rec for accurate list of home medications. Patient Condition at Discharge: Stable Plan - Discharge Summary Discharge Rx Participant: Yes New Discharge Prescriptions: New HYDROcodone/APAP 5-325MG [[place] 5-325] 1 - 2 tab PO Q6HR PRN #48 tab PRN Reason: Pain Sennosides [Senokot] 2 tab PO DAILY PRN #60 tablet PRN Reason: Constipation Rivaroxaban [Xarelto] 10 mg PO DAILY #35 tab Continue sitaGLIPtin PHOS/metFORMIN HCL [Janumet 50-500 mg Tablet] 1 tab PO BID lisinopriL [Zestril] 2.5 mg PO DAILY Insulin Glargine,Hum.rec.anlog [Lantus Solostar] 20 unit SQ HS Anastrozole [Arimidex] 1 mg PO DAILY Discharge Medication List Anastrozole [Arimidex] 1 mg PO DAILY 06/12/20 [History] Insulin Glargine,Hum.rec.anlog [Lantus Solostar] 20 unit SQ HS 06/12/20 [History] lisinopriL [Zestril] 2.5 mg PO DAILY 06/12/20 [History] sitaGLIPtin PHOS/metFORMIN HCL [Janumet 50-500 mg Tablet] 1 tab PO BID 06/12/20 [History] HYDROcodone/APAP 5-325MG [[place] 5-325] 1 - 2 tab PO Q6HR PRN #48 tab 06/15/20 [Rx] Rivaroxaban [Xarelto] 10 mg PO DAILY #35 tab 06/15/20 [Rx] Sennosides [Senokot] 2 tab PO DAILY PRN #60 tablet 06/15/20 [Rx] Follow up Appointment(s)/Referral(s): Addie García III, MD [Primary Care Provider] - 3 Days [facility], [NON-STAFF] - As Needed Jose Lea DO [Doctor of Osteopathic Medicine] - 2 Weeks Activity/Diet/Wound Care/Special Instructions: Weightbearing as tolerated with walker. Leave dressing intact. Dressing may be removed by patient or nurse 10 days postoperatively. May shower with dressing on. Xarelto for DVT Prophylaxis. Please wear compression stockings during the day until follow-up appointment to help prevent blood clots. May remove at night. Follow-up with [facility] in 2 weeks, please call with any questions or concerns [phone] Discharge Disposition: TRANSFER TO SNF/ECF
== END 2020-06-16 11:14 | DRG 522 ==
LOC: EC 12:33 → 4SSUR 13:42
PROVIDERS: ADMIT Orthopaedic Surgery; ATTEND Orthopaedic Surgery
PROC: 0SRS0JA Replacement of Left Hip Joint, Femoral Surface with Synthetic Substitute, Uncemented, Open Approach (ICD-10-PCS; principal; 2020-06-14 08:30)
DX: S72.012A Unspecified intracapsular fracture of left femur, initial encounter for closed fracture (principal); Z68.41 Body mass index [BMI] 40.0-44.9, adult; E66.9 Obesity, unspecified; I10 Essential (primary) hypertension; E11.622 Type 2 diabetes mellitus with other skin ulcer; L89.152 Pressure ulcer of sacral region, stage 2; W01.0XXA Fall on same level from slipping, tripping and stumbling without subsequent striking against object, initial encounter; Y92.009 Unspecified place in unspecified non-institutional (private) residence as the place of occurrence of the external cause; Z79.811 Long term (current) use of aromatase inhibitors; Z79.899 Other long term (current) drug therapy; Z85.3 Personal history of malignant neoplasm of breast
CPT/HCPCS: 36415; 51702; 71045; 73501; 73502; 80048; 80053; 81001; 83036; 85025; 85027; 85610; 85730; 86850; 86900; 86901; 87077; 87086; 87186; 88305; 88311; 93005; 96374; 96375; 99285

== ENCOUNTER → 2021-03-14 | Outpatient (CLI) | payer MEDICARE, BC ==
--- NOTE | 2021-03-14 16:23 | MR ---
MR brain without contrast HISTORY: Z86.7 Multiplanar multisequence imaging through the brain No comparisons There is no restricted diffusion. Cortical atrophy is likely age-related. Cerebellopontine angles, co rpus callosum, pituitary, cervical medullary junction are within normal limits. There is no hemorrhag e or hydrocephalus. Scattered and confluent hyperintensities present on inversion recovery, T2-weight ed sequences in the periventricular, pericallosal, subcortical white matter. There is no hemorrhage o r hydrocephalus. Inflammatory changes present within the maxillary sinuses, ethmoid air cells. The or bits show symmetric appearance. There are normal vascular flow voids. IMPRESSION: Age-related changes of atrophy and chronic small vessel ischemia. Sinus disease.
== END | disposition home or self-care (01) ==
LOC: RADMRIMAIN 10:38
PROVIDERS: ATTEND Psychiatry & Neurology Neurology
DX: I67.82 Cerebral ischemia (principal)
CPT/HCPCS: 70551

== ENCOUNTER 2021-10-11 17:15 | Inpatient (IN) | payer MEDICARE, BC ==
--- NOTE | 2021-10-11 17:51 | ED ---
General Adult HPI - General Chief complaint: Fall Stated complaint: fall/Rt hip pain Time Seen by Provider: 10/11/21 17:22 Source: EMS Mode of arrival: EMS Limitations: altered mental status, physical limitation - History of Present Illness Initial comments: Dictation was produced using [employer] dictation software. please excuse any grammatical, word or spelling errors. Chief Complaint: 81-year-old feel presents to the emergency department after fall. History of Present Illness:-year-old female she was sent in from assisted-living facility. She was found the ground. Unknown down time. Patient has history of dementia. At baseline she is alert and oriented 2. Patient is brought in by EMS. According to EMS patient was found down by assisted-living facility staff. A does not know why she is here. There is no concerned about her mental status. She states she feels fine The ROS documented in this emergency department record has been reviewed and confirmed by me. Those systems with pertinent positive or negative responses have been documented in the HPI. All other systems are other negative and/or noncontributory. PHYSICAL EXAM: General Impression: Alert and oriented x2/4, not in acute distress HEENT: Normocephalic atraumatic, extra-ocular movements intact, pupils equal and reactive to light bilaterally, mucous membranes moist. Cardiovascular: Heart regular rate and rhythm Chest: Able to complete full sentences, no retractions, no tachypnea Abdomen: abdomen soft, non-tender, non-distended, no organomegaly Musculoskeletal: Pulses present and equal in all extremities, no peripheral edema, palpatory tenderness to the right hip that's reproduced with external rotation, right lower extremity is slightly shortened that the left Motor: no focal deficits noted Neurological: CN II-XII grossly intact, no focal motor or sensory deficits noted Skin: Intact with no visualized rashes Psych: Normal affect and mood ED course: 81-year-old female presents after fall. Upon arrival shows oxygen saturation of 88%, worse vital signs within acceptable limits. Patient is not dyspneic. Repeat oxygen saturations 96% on room air. Laboratory evaluation obtained. CBC, coag panel, metabolic panel is within acceptable limits. Coag tests negative. Computed tomography scan of brain C- spine shows no acute processes per chest x-ray shows no trichomoniasis injuries. Pelvis x-ray shows fractured femoral neck fracture on the right. Right-sided knee x-ray shows no acute processes. Patient be admitted to orthopedic surgery. Case discussed with Dr. Ortiz. Medicine on consult. EKG interpretation: Ventricular rate 73, sinus rhythm,. Interval to 29, QRS 71, QTC 47. No WV prolongation, no QTC prolongation, no ST or T-wave changes noted. EKG compared to 06/12/2020 showing no changes. Overall, this EKG is unr emarkable - Related Data Home Medications Medication Instructions Recorded Confirmed Anastrozole [Arimidex] 1 mg PO HS 06/12/20 10/11/21 Insulin Glargine,Hum.rec.anlog 25 unit SQ HS 06/12/20 10/11/21 [Lantus Solostar Pen] lisinopriL [Zestril] 2.5 mg PO HS 06/12/20 10/11/21 sitaGLIPtin PHOS/metFORMIN HCL 2 tab PO HS 06/12/20 10/11/21 [Janumet 50-500 mg Tablet] Citalopram Hydrobromide [CeleXA] 10 mg PO HS 10/11/21 10/11/21 Donepezil [Aricept] 10 mg PO HS 10/11/21 10/11/21 Memantine [Namenda] 10 mg PO HS 10/11/21 10/11/21 Allergies Allergy/AdvReac Type Severity Reaction Status Date / Time No Known Allergies Allergy Verified 06/12/20 14:06 Review of Systems ROS Statement: Those systems with pertinent positive or pertinent negative responses have been documented in the HPI. ROS Other: All systems not noted in ROS Statement are negative. Past Medical History Past Medical History: Cancer, Diabetes Mellitus History of Any Multi-Drug Resistant Organisms: None Reported Past Surgical History: Breast Surgery Past Anesthesia/Blood Transfusion Reactions: Unable to Obtain Past Psychological History: No Psychological Hx Reported Smoking Status: Never smoker Past Alcohol Use History: None Reported Past Drug Use History: None Reported General Exam Limitations: altered mental status, physical limitation Course Vital Signs 10/11/21 17:22 Temperature 98.8 F Pulse Rate 73 Respiratory 16 Rate Blood Pressure 146/76 O2 Sat by Pulse 88 L Oximetry Medical Decision Making - Lab Data Result diagrams: 10/11/21 18:13 10/11/21 18:13 Lab Results 10/11/21 10/11/21 10/11/21 Range/Units 18:13 18:13 18:13 WBC 12.3 H (3.8-10.6) k/uL RBC 4.25 (3.80-5.40) m/uL Hgb 13.6 (11.4-16.0) gm/dL Hct 41.7 (34.0-46.0) % MCV 98.1 (80.0-100.0) fL MCH 32.0 (25.0-35.0) pg MCHC 32.6 (31.0-37.0) g/dL RDW 13.1 (11.5-15.5) % Plt Count 220 (150-450) k/uL MPV 7.3 Neutrophils % 89 % Lymphocytes % 5 % Monocytes % 4 % Eosinophils % 0 % Basophils % 0 % Neutrophils # 11.0 H (1.3-7.7) k/uL Lymphocytes # 0.6 L (1.0-4.8) k/uL Monocytes # 0.6 (0-1.0) k/uL Eosinophils # 0.0 (0-0.7) k/uL Basophils # 0.0 (0-0.2) k/uL PT 10.4 (9.0-12.0) sec INR 1.0 (<1.2) APTT 19.1 L (22.0-30.0) sec Sodium (137-145) mmol/L Potassium (3.5-5.1) mmol/L Chloride (98-107) mmol/L Carbon Dioxide (22-30) mmol/L Anion Gap mmol/L BUN (7-17) mg/dL Creatinine (0.52-1.04) mg/dL Est GFR (CKD-EPI)AfAm (>60 ml/min/1.73 sqM) Est GFR (CKD-EPI)NonAf (>60 ml/min/1.73 sqM) Glucose (74-99) mg/dL Calcium (8.4-10.2) mg/dL Magnesium (1.6-2.3) mg/dL Total Bilirubin (0.2-1.3) mg/dL AST (14-36) U/L ALT (4-34) U/L Alkaline Phosphatase (38-126) U/L Creatine Kinase (30-135) U/L Troponin I (0.000-0.034) ng/mL Total Protein (6.3-8.2) g/dL Albumin (3.5-5.0) g/dL Coronavirus (PCR) Not Detected (Not Detectd) 10/11/21 10/11/21 Range/Units 18:13 18:13 WBC (3.8-10.6) k/uL RBC (3.80-5.40) m/uL Hgb (11.4-16.0) gm/dL Hct (34.0-46.0) % MCV (80.0-100.0) fL MCH (25.0-35.0) pg MCHC (31.0-37.0) g/dL RDW (11.5-15.5) % Plt Count (150-450) k/uL MPV Neutrophils % % Lymphocytes % % Monocytes % % Eosinophils % % Basophils % % Neutrophils # (1.3-7.7) k/uL Lymphocytes # (1.0-4.8) k/uL Monocytes # (0-1.0) k/uL Eosinophils # (0-0.7) k/uL Basophils # (0-0.2) k/uL PT (9.0-12.0) sec INR (<1.2) APTT (22.0-30.0) sec Sodium 139 (137-145) mmol/L Potassium 4.7 (3.5-5.1) mmol/L Chloride 108 H (98-107) mmol/L Carbon Dioxide 19 L (22-30) mmol/L Anion Gap 12 mmol/L BUN 14 (7-17) mg/dL Creatinine 0.62 (0.52-1.04) mg/dL Est GFR (CKD-EPI)AfAm >90 (>60 ml/min/1.73 sqM) Est GFR (CKD-EPI)NonAf 86 (>60 ml/min/1.73 sqM) Glucose 197 H (74-99) mg/dL Calcium 9.6 (8.4-10.2) mg/dL Magnesium 1.7 (1.6-2.3) mg/dL Total Bilirubin 0.7 (0.2-1.3) mg/dL AST 38 H (14-36) U/L ALT 31 (4-34) U/L Alkaline Phosphatase 170 H (38-126) U/L Creatine Kinase 43 (30-135) U/L Troponin I <0.012 (0.000-0.034) ng/mL Total Protein 8.3 H (6.3-8.2) g/dL Albumin 4.1 (3.5-5.0) g/dL Coronavirus (PCR) (Not Detectd) Disposition Clinical Impression: Hip fracture Disposition: ADMITTED IP TO THIS HOSP Condition: Fair Referrals: Addie García III, MD [Primary Care Provider] - 1-2 days
[2021-10-11 18:36] LABS: Basophils % (A) 0 %; Eosinophils % (A) 0 %; HCT 41.7 % (34.0-46.0); HGB 13.6 gm/dL (11.4-16.0); Lymphocytes # (A) 0.6 k/uL (1.0-4.8); Lymphocytes % (A) 5 %; MCHC 32.6 g/dL (31.0-37.0); MCV 98.1 fL (80.0-100.0); Mean Platelet Volume 7.3; Monocytes # (A) 0.6 k/uL (0-1.0); Monocytes % (A) 4 %; Neutrophils % (A) 89 %; Platelet Count 220 k/uL (150-450); RBC 4.25 m/uL (3.80-5.40); RDW 13.1 % (11.5-15.5); WBC 12.3 k/uL (3.8-10.6)
[2021-10-11 18:49] LABS: ALT 31 U/L (4-34); African American GFR (CKD) >90 (>60 ml/min/1.73 sqM); Albumin 4.1 g/dL (3.5-5.0); Anion Gap 12 mmol/L; Blood Urea Nitrogen 14 mg/dL (7-17); Calcium 9.6 mg/dL (8.4-10.2); Carbon Dioxide 19 mmol/L (22-30); Chloride 108 mmol/L (98-107); Creatine Kinase 43 U/L (30-135); Glucose 197 mg/dL (74-99); Non-African American GFR(CKD) 86 (>60 ml/min/1.73 sqM); Sodium 139 mmol/L (137-145); Total Bilirubin 0.7 mg/dL (0.2-1.3); Total Protein 8.3 g/dL (6.3-8.2)
[2021-10-11 18:51] LABS: AST 38 U/L (14-36); Alkaline Phosphatase 170 U/L (38-126); Magnesium 1.7 mg/dL (1.6-2.3); Potassium 4.7 mmol/L (3.5-5.1)
--- NOTE | 2021-10-11 19:05 | CT ---
EXAMINATION TYPE: CT brain cspine wo con CT DLP: 1506.2 mGycm, Automated exposure control for dose reduction was used. DATE OF EXAM: 10/11/2021 6:37 PM COMPARISON: MRI brain 03/14/2021. CLINICAL INDICATION:Female, 81 years old with history of fall; TECHNIQUE: Brain: Multiple axial CT images of the brain were obtained without IV contrast. Cspine: Axial CT images from the skull base to the inferior aspect of T2 we obtained without intraven ous contrast. Coronal and sagittal reformatted images were also reviewed. FINDINGS: Brain: Extra-axial spaces: No abnormal extra-axial fluid collections. Ventricular system: Dilatation in proportion to cerebral atrophy. Cerebral parenchyma: No acute intraparenchymal hemorrhage or mass effect. The ramirez-white junction is well differentiated. Scattered hypoattenuating areas are seen within the white matter. Cerebellum: Unremarkable. Mass effect: No evidence of midline shift. Intracranial vasculature: Atherosclerotic calcifications of the intracranial vessels. Soft tissues: Normal. Calvarium/osseous structures: No depressed skull fracture. Paranasal sinuses and mastoid air cells: Clear. Visualized orbits: Orbital contents are intact. Cervical spine: Fracture: None. Osseous structures: Unremarkable Vertebral alignment: Within normal limits. Spinal canal/Neural Foramina: No evidence of significant spinal canal narrowing. No evidence of signi ficant neural foramina narrowing. Neck soft tissues: Prevertebral soft tissues are within normal limits. Other: The airway is patent. The lung apices are clear. IMPRESSION: 1. No acute intracranial process. 2. Nonspecific white matter changes, likely secondary to chronic small vessel ischemic disease. 3. No evidence of cervical spine fracture. 4. Mild multilevel degenerative disc disease.
[2021-10-11 19:22] LABS: Prothrombin Time 10.4 sec (9.0-12.0)
[2021-10-11 19:24] LABS: Partial Thromboplastin Time 19.1 sec (22.0-30.0)
--- NOTE | 2021-10-11 19:44 | XR ---
EXAMINATION TYPE: XR chest 1V portable DATE OF EXAM: 10/11/2021 6:51 PM COMPARISON:Chest radiographs from 06/12/2020 TECHNIQUE: XR chest 1V portable Frontal view of the chest. CLINICAL INDICATION:Female, 81 years old with history of fall; FINDINGS: Lungs/Pleura: There is no evidence of pleural effusion, focal consolidation, or pneumothorax. Pulmonary vascularity: Unremarkable. Heart/mediastinum: Cardiomediastinal silhouette is unremarkable. Atherosclerotic calcifications are seen in the aorta. Musculoskeletal: No acute osseous pathology. Other: Left axilla surgical clips. IMPRESSION: No acute cardiopulmonary disease/process.
--- NOTE | 2021-10-11 19:47 | XR ---
EXAMINATION TYPE: XR Hip RT and AP Pelvis DATE OF EXAM: 10/11/2021 6:51 PM INDICATION: Patient age:Female; 81 years old; Reason for study: fall COMPARISON: None. TECHNIQUE: The right hip was examined in the frontal and lateral projections and a AP pelvis. FINDINGS: Deformity of the right femoral neck with varus deformity. No joint dislocation, or soft tis elma swelling. Multilevel disc degeneration changes of the lower lumbar spine. Left total hip prosthes is present, hardware appears intact. IMPRESSION: Right femoral neck acute fracture with varus deformity.
--- NOTE | 2021-10-11 19:48 | XR ---
EXAMINATION TYPE: XR knee limited RT DATE OF EXAM: 10/11/2021 6:51 PM INDICATION: Patient age:Female; 81 years old; Reason for study: fall; COMPARISON: None. TECHNIQUE: The Right knee(s) was examined in AP lateral projections. FINDINGS: No evidence of any acute osseous pathology, joint space narrowing, soft tissue swelling, or joint effusion is noted. Scattered osteophyte formation throughout the joint. IMPRESSION: 1. No acute osseous pathology. 2. Moderate tricompartmental osteoarthritic changes.
[2021-10-11] MEDS ORDERED: MORPHINE SULFATE 4 MG/ML SYRINGE IV PRN (21:01)
[2021-10-11] MEDS ORDERED: NALOXONE 0.4 MG/ML 1 ML VIAL IV PRN (21:01)
[2021-10-11 22:04] LABS: Appearance,Urine Cloudy (Clear); Bacteria,Urine Many /hpf; Bilirubin,Urine Negative (Negative); Blood,Urine Trace (Negative); Color,Urine Yellow; Glucose,Urine (UA) 3+ (Negative); Hyaline Casts,Urine 1 /lpf (0-2); Ketones,Urine 1+ (Negative); Leukocyte Esterase,Urine Large (Negative); Mucus,Urine Few /hpf; Nitrite,Urine Positive (Negative); Protein,Urine Trace (Negative); RBC,Urine 5 /hpf (0-5); Specific Gravity,Urine 1.017 (1.001-1.035); Squamous Epithelial Cell,Urine <1 /hpf (0-4); Urobilinogen,Urine <2.0 mg/dL (<2.0); WBC,Urine 52 /hpf (0-5)
[2021-10-11] MEDS: SODIUM CHLORIDE 0.9% 1,000 ML IV SCH (22:14)
[2021-10-12 07:13] LABS: Glucose,Whole Blood 191 mg/dL (75-99)
--- NOTE | 2021-10-12 10:20 | P.HPOR ---
History of Present Illness H&P Date: 10/12/21 Chief Complaint: Right hip pain The patient is an 81-year-old female with a history of diabetes and dementia who presented to the emergency department via EMS after sustaining a fall on her assisted living facility yesterday. X-rays were taken and a right femoral neck fracture was found. The patient states that she fell outside but according to the ER note she was found on the ground inside and was laying there for unknown amount of time. The patient states that she lives in "[place]". She also denies using a cane or walker normally. She denies any pain while laying in bed this morning. She denies any other injuries or hitting her head. CT of the head and neck in the ER yesterday were negative for fracture or bleed. The patient also does not remember her right hip hurting and does not remember fracturing her left hip a year and a half ago. She underwent a left hip hemiarthroplasty by Dr. Jose Lea in May 2020. Review of Systems Constitutional: Denies chills, Denies fatigue, Denies fever Cardiovascular: Denies chest pain, Denies shortness of breath Respiratory: Denies cough Gastrointestinal: Denies diarrhea, Denies nausea, Denies vomiting Musculoskeletal: right: hip pain, hip stiffness, hip swelling Past Medical History Past Medical History: Cancer, Diabetes Mellitus History of Any Multi-Drug Resistant Organisms: None Reported Past Surgical History: Breast Surgery Past Anesthesia/Blood Transfusion Reactions: Unable to Obtain Past Psychological History: No Psychological Hx Reported Smoking Status: Never smoker Past Alcohol Use History: None Reported Past Drug Use History: None Reported Medications and Allergies Home Medications Medication Instructions Recorded Confirmed Type Anastrozole [Arimidex] 1 mg PO HS 06/12/20 10/11/21 History Insulin Glargine,Hum.rec.anlog 25 unit SQ HS 06/12/20 10/11/21 History [Lantus Solostar Pen] lisinopriL [Zestril] 2.5 mg PO HS 06/12/20 10/11/21 History sitaGLIPtin PHOS/metFORMIN HCL 2 tab PO HS 06/12/20 10/11/21 History [Janumet 50-500 mg Tablet] Citalopram Hydrobromide [CeleXA] 10 mg PO HS 10/11/21 10/11/21 History Donepezil [Aricept] 10 mg PO HS 10/11/21 10/11/21 History Memantine [Namenda] 10 mg PO HS 10/11/21 10/11/21 History Allergies Allergy/AdvReac Type Severity Reaction Status Date / Time No Known Allergies Allergy Verified 06/12/20 14:06 Physical Examination The patient is a 81 year old female that is no acute distress. She is alert and oriented x1. The patient's head is normocephalic and atraumatic. Exam of the cervical spine reveals no pain upon palpation or range of motion. Exam of the bilateral upper extremities reveal no obvious deformities or pain upon range of motion. Exam of the left lower extremity reveals no pain upon palpation. Exam of the right lower extremity reveals a externally rotated and shortened leg. No pain upon palpation to the lateral hip. There is pain upon logrolling and any range of motion of the leg. Bilateral calves are soft and nontender. Patient has good foot and ankle motion bilaterally. Neurological and circulatory status is intact. Results - Labs Labs: Abnormal Lab Results - Last 24 Hours (Table) 10/11/21 10/11/21 10/11/21 Range/Units 18:13 18:13 18:13 WBC 12.3 H (3.8-10.6) k/uL Neutrophils # 11.0 H (1.3-7.7) k/uL Lymphocytes # 0.6 L (1.0-4.8) k/uL APTT 19.1 L (22.0-30.0) sec Chloride 108 H (98-107) mmol/L Carbon Dioxide 19 L (22-30) mmol/L Glucose 197 H (74-99) mg/dL POC Glucose (mg/dL) (75-99) mg/dL AST 38 H (14-36) U/L Alkaline Phosphatase 170 H (38-126) U/L Total Protein 8.3 H (6.3-8.2) g/dL Urine Appearance (Clear) Urine Protein (Negative) Urine Glucose (UA) (Negative) Urine Ketones (Negative) Urine Blood (Negative) Urine Nitrite (Negative) Ur Leukocyte Esterase (Negative) Urine WBC (0-5) /hpf Urine WBC Clumps (None) /hpf Urine Bacteria (None) /hpf Urine Mucus (None) /hpf 10/11/21 10/12/21 Range/Units 21:42 07:12 WBC (3.8-10.6) k/uL Neutrophils # (1.3-7.7) k/uL Lymphocytes # (1.0-4.8) k/uL APTT (22.0-30.0) sec Chloride (98-107) mmol/L Carbon Dioxide (22-30) mmol/L Glucose (74-99) mg/dL POC Glucose (mg/dL) 191 H (75-99) mg/dL AST (14-36) U/L Alkaline Phosphatase (38-126) U/L Total Protein (6.3-8.2) g/dL Urine Appearance Cloudy H (Clear) Urine Protein Trace H (Negative) Urine Glucose (UA) 3+ H (Negative) Urine Ketones 1+ H (Negative) Urine Blood Trace H (Negative) Urine Nitrite Positive H (Negative) Ur Leukocyte Esterase Large H (Negative) Urine WBC 52 H (0-5) /hpf Urine WBC Clumps Few H (None) /hpf Urine Bacteria Many H (None) /hpf Urine Mucus Few H (None) /hpf H & H 10/11/21 Range/Units 18:13 Hgb 13.6 (11.4-16.0) gm/dL Hct 41.7 (34.0-46.0) % Coagulation 10/11/21 Range/Units 18:13 INR 1.0 (<1.2) Result Diagrams: 10/11/21 18:13 10/11/21 18:13 - Diagnostic results Hip x-ray: image reviewed (Three views of the left hip reveal a femoral neck fra cture.) Assessment and Plan (1) Fracture of femoral neck, right, closed Current Visit: Yes Status: Acute Code(s): S72.001A - FRACTURE OF UNSP PART OF NECK OF RIGHT FEMUR, INIT SNOMED Code(s): 721197130 (2) Diabetes mellitus Current Visit: Yes Status: Acute Code(s): E11.9 - TYPE 2 DIABETES MELLITUS WITHOUT COMPLICATIONS SNOMED Code(s): 86959319 (3) Dementia Current Visit: Yes Status: Acute Code(s): F03.90 - UNSPECIFIED DEMENTIA WITHOUT BEHAVIORAL DISTURBANCE SNOMED Code(s): 56081379 (4) Fall Current Visit: No Status: Acute Code(s): W19.XXXA - UNSPECIFIED FALL, INITIAL ENCOUNTER SNOMED Code(s): 3654927 Plan: The clinical and x-ray findings were discussed with the patient. No family is present this morning. The case was discussed at length with Dr. Ortiz. Treatment options were discussed and surgical intervention is recommended. We discussed the surgical plan as well as the expected postoperative course. Risks and benefits were reviewed including (but not limited to) the risks of infection, bleeding, blood clots, delayed or nonunion, anesthesia-related complications and possible need for additional surgery. Questions were invited and answered. The patient expressed understanding and wishes to proceed with surgery. The patient will be kept on bedrest. Continue PRN pain management. NPO today. She is scheduled for a right hip hemiarthroplasty later this afternoon with Dr. Wheeler. We will await pre-op clearance from internal medicine.
[2021-10-12 11:17] LABS: Glucose,Whole Blood 197 mg/dL (75-99)
[2021-10-12] MEDS: SODIUM CHLORIDE 0.9% 1,000 ML IV SCH (11:54)
[2021-10-12 16:45] LABS: Glucose,Whole Blood 181 mg/dL (75-99)
--- NOTE | 2021-10-12 17:17 | P.CONS ---
History of Present Illness - Reason for Consult Consult date: 10/12/21 - Chief Complaint Right hip pain - History of Present Illness 81-year-old female with a history of diabetes and dementia who presented to the emergency department via EMS after sustaining a fall on her assisted living facility yesterday. X-rays were taken and a right femoral neck fracture was fo und. The patient states that she fell outside but according to the ER note she was found on the ground inside and was laying there for unknown amount of time. The patient states that she lives in "[place]". She also denies using a cane or walker normally. She denies any pain while laying in bed this morning. She denies any other injuries or hitting her head. CT of the head and neck in the ER yesterday were negative for fracture or bleed. The patient also does not remember her right hip hurting and does not remember fracturing her left hip a year and a half ago. Patient denies any cocaine of chest and shortness of breath Review of Systems REVIEW OF SYSTEMS: CONSTITUTIONAL: No fever, no malaise, no fatigue. HEENT: No recent visual problems or hearing problems. Denied any sore throat. CARDIOVASCULAR: No chest pain, orthopnea, PND, no palpitations, no syncope. PULMONARY: No shortness of breath, no cough, no hemoptysis. GASTROINTESTINAL: No diarrhea, no nausea, no vomiting, no abdominal pain. NEUROLOGICAL: No headaches, no weakness, no numbness. HEMATOLOGICAL: Denies any bleeding or petechiae. GENITOURINARY: Denies any burning micturition, frequency, or urgency. MUSCULOSKELETAL/RHEUMATOLOGICAL: Denies any joint pain, swelling, or any muscle pain. ENDOCRINE: Denies any polyuria or polydipsia. The rest of the 14-point review of systems is negative. Past Medical History Past Medical History: Cancer, Diabetes Mellitus History of Any Multi-Drug Resistant Organisms: None Reported Past Surgical History: Breast Surgery Past Anesthesia/Blood Transfusion Reactions: Unable to Obtain Past Psychological History: No Psychological Hx Reported Smoking Status: Never smoker Past Alcohol Use History: None Reported Past Drug Use History: None Reported Medications and Allergies Home Medications Medication Instructions Recorded Confirmed Type Anastrozole [Arimidex] 1 mg PO HS 06/12/20 10/11/21 History Insulin Glargine,Hum.rec.anlog 25 unit SQ HS 06/12/20 10/11/21 History [Lantus Solostar Pen] lisinopriL [Zestril] 2.5 mg PO HS 06/12/20 10/11/21 History sitaGLIPtin PHOS/metFORMIN HCL 2 tab PO HS 06/12/20 10/11/21 History [Janumet 50-500 mg Tablet] Citalopram Hydrobromide [CeleXA] 10 mg PO HS 10/11/21 10/11/21 History Donepezil [Aricept] 10 mg PO HS 10/11/21 10/11/21 History Memantine [Namenda] 10 mg PO HS 10/11/21 10/11/21 History Allergies Allergy/AdvReac Type Severity Reaction Status Date / Time No Known Allergies Allergy Verified 06/12/20 14:06 Physical Exam Vitals: Vital Signs Temp Pulse Pulse Resp BP BP Pulse Ox 10/12/21 09:53 98.2 F 75 18 146/79 95 10/12/21 02:00 99.0 F 67 139/80 97 10/11/21 22:15 72 18 134/81 98 10/11/21 21:18 63 18 141/75 98 10/11/21 17:22 98.8 F 73 16 146/76 88 L Intake and Output 10/11/21 10/12/21 10/12/21 22:59 06:59 14:59 Output Total 650 Balance -650 Output: Urine 650 Other: Voiding Method Indwelling Catheter Weight 100.244 kg 100.244 kg General appearance: Present: average body habitus, cooperative, no acute distress Eyes: Present: anicteric sclerae, EOMI, PERRLA, normal appearance Neck: Present: normal ROM. Absent: lymphadenopathy, rigidity, thyromegaly Carotids: negative: bruit present Thyroid: bilateral: normal size, negative: enlarged, nodule Respiratory: bilateral: CTA, negative: rales, rhonchi, wheezing - Cardiovascular: regular Heart sounds: normal: S1, S2 Abnormal Heart Sounds: Absent: systolic murmur, diastolic murmur - Gastrointestinal General gastrointestinal: Present: normal bowel sounds, soft. Absent: distended, organomegaly, tenderness - Genitourinary Genitourinary Comment(s): deferred Integumentary: Present: normal turgor. Absent: jaundiced, rash, ulcer Neurologic: Present: CNII-XII intact. Absent: focal deficits Musculoskeletal: Present: gait normal, strength equal bilaterally Results CBC & Chem 7: 10/11/21 18:13 10/11/21 18:13 Labs: Abnormal Lab Results - Last 24 Hours (Table) 10/11/21 10/11/21 10/11/21 Range/Units 18:13 18:13 18:13 WBC 12.3 H (3.8-10.6) k/uL Neutrophils # 11.0 H (1.3-7.7) k/uL Lymphocytes # 0.6 L (1.0-4.8) k/uL APTT 19.1 L (22.0-30.0) sec Chloride 108 H (98-107) mmol/L Carbon Dioxide 19 L (22-30) mmol/L Glucose 197 H (74-99) mg/dL POC Glucose (mg/dL) (75-99) mg/dL AST 38 H (14-36) U/L Alkaline Phosphatase 170 H (38-126) U/L Total Protein 8.3 H (6.3-8.2) g/dL Urine Appearance (Clear) Urine Protein (Negative) Urine Glucose (UA) (Negative) Urine Ketones (Negative) Urine Blood (Negative) Urine Nitrite (Negative) Ur Leukocyte Esterase (Negative) Urine WBC (0-5) /hpf Urine WBC Clumps (None) /hpf Urine Bacteria (None) /hpf Urine Mucus (None) /hpf 10/11/21 10/12/21 10/12/21 Range/Units 21:42 07:12 11:15 WBC (3.8-10.6) k/uL Neutrophils # (1.3-7.7) k/uL Lymphocytes # (1.0-4.8) k/uL APTT (22.0-30.0) sec Chloride (98-107) mmol/L Carbon Dioxide (22-30) mmol/L Glucose (74-99) mg/dL POC Glucose (mg/dL) 191 H 197 H (75-99) mg/dL AST (14-36) U/L Alkaline Phosphatase (38-126) U/L Total Protein (6.3-8.2) g/dL Urine Appearance Cloudy H (Clear) Urine Protein Trace H (Negative) Urine Glucose (UA) 3+ H (Negative) Urine Ketones 1+ H (Negative) Urine Blood Trace H (Negative) Urine Nitrite Positive H (Negative) Ur Leukocyte Esterase Large H (Negative) Urine WBC 52 H (0-5) /hpf Urine WBC Clumps Few H (None) /hpf Urine Bacteria Many H (None) /hpf Urine Mucus Few H (None) /hpf Assessment and Plan Assessment: 1. Right femoral neck fracture; orthopedic surgery on board; patient scheduled for OR this afternoon; pain control per your recommendations - Patient is cleared to proceed with surgery 2. Diabetes mellitus type 2; continue with home dose of Janumet 13803 tablets daily at bedtime; Lantus 25 units subcu daily at bedtime; monitor Accu-Cheks before meals and at bedtime with insulin sliding scale 3. Hypertension; lisinopril 2.5 mg daily 4. Dementia/depression; Aricept 10 mg daily at bedtime along with Namenda 10 mg by mouth daily at bedtime; Celexa 10 mg by mouth daily at bedtime 5. History of breast cancer; Arimidex 1 mg per daily at bedtime DVT prophylaxis; SCDs/subcu heparin once cleared by surgery CODE STATUS; full code
[2021-10-12] MEDS: INSULIN ASPART (NovoLOG) 100 UNIT/ML VIAL SQ SCH ×2 (17:33→21:56)
[2021-10-12 20:52] LABS: Glucose,Whole Blood 200 mg/dL (75-99)
[2021-10-13] MEDS: SODIUM CHLORIDE 0.9% 1,000 ML IV SCH ×2 (02:13→12:57)
[2021-10-13 07:20] LABS: Glucose,Whole Blood 184 mg/dL (75-99)
[2021-10-13] MEDS: INSULIN ASPART (NovoLOG) 100 UNIT/ML VIAL SQ SCH ×4 (08:00→21:37)
[2021-10-13] MEDS ORDERED: HYDROmorphone (PF) 1 MG/ML ONE (08:06)
[2021-10-13] MEDS ORDERED: LACTATED RINGERS 1,000 ML IV ONE ×2 (08:06→10:00)
[2021-10-13] MEDS ORDERED: PHENYLEPHRINE-0.9% NACL SYG 1,000 MCG/10 ML SYRINGE ONE (08:06)
[2021-10-13] MEDS ORDERED: ONDANSETRON 4 MG/2 ML VIAL ONE (08:06)
[2021-10-13] MEDS ORDERED: DEXAMETHASONE SOD PHOSPHATE 10 MG/ML 1 ML VIAL ONE (08:06)
[2021-10-13] MEDS ORDERED: GLYCOPYRROLATE 0.2 MG/ML 2 ML VIAL ONE (08:06)
[2021-10-13] MEDS ORDERED: PROPOFOL 10 MG/ML 20 ML VIAL IV ONE (08:06)
[2021-10-13] MEDS ORDERED: NEOSTIGMINE 1 MG/ML 10 ML VIAL ONE (08:06)
[2021-10-13] MEDS ORDERED: SODIUM CHLORIDE 0.9% 100 ML with ceFAZolin 2,000 MG IV ONE ×2 (08:06)
[2021-10-13] MEDS ORDERED: ROCURONIUM 10 MG/ML (5 ML VIAL) IV ONE (08:06)
[2021-10-13] MEDS ORDERED: LIDOCAINE 1% INJ 10MG/ML (20 ML MDV) ONE (08:06)
[2021-10-13] MEDS ORDERED: LABETALOL 5 MG/ML VIAL MDV ONE (08:06)
[2021-10-13] MEDS ORDERED: SUCCINYLCHOLINE CHLORIDE 100 MG/5 ML SYR IV ONE (08:06)
[2021-10-13] MEDS ORDERED: fentaNYL (PF) 50 MCG/ML 2 ML AMP ONE (08:06)
[2021-10-13] MEDS ORDERED: ALBUTEROL HFA INHALER INHALATION ONE (08:06)
[2021-10-13] MEDS ORDERED: TRANEXAMIC ACID 1,000 MG/10 ML VIAL IRRIGATION PRN (09:24)
[2021-10-13] MEDS: ROPIVACAINE/EPI/CLONIDINE/KET 50 ML SYRINGE MISCELLANE PRN ×2 (09:57→10:04)
[2021-10-13] MEDS ORDERED: MAGNESIUM HYDROXIDE 2,400 MG/10 ML CUP PO PRN (10:05)
[2021-10-13] MEDS ORDERED: HYDROmorphone 1 MG/ML 1 ML SYRINGE IVP PRN ×2 (10:05)
[2021-10-13] MEDS ORDERED: traMADol 50 MG TAB PO PRN (10:05)
[2021-10-13] MEDS ORDERED: HYDROcodone/APAP 5-325MG 1 EACH TAB PO PRN ×2 (10:05)
[2021-10-13] MEDS ORDERED: HYDROmorphone 0.2 MG/1 ML SYRINGE IVP PRN (10:05)
--- NOTE | 2021-10-13 10:55 | P.OP ---
Date of Procedure: 10/13/21 Preoperative Diagnosis: 1. Right displaced femoral neck fracture 2. Dementia 3. Type 2 diabetes 4. Prior fragility fracture (left displaced femoral neck fracture treated with hemiarthroplasty) Postoperative Diagnosis: Same Procedure(s) Performed: 1. Right direct anterior hip hemiarthroplasty 2. Application of negative pressure wound VAC, right hip, incision measuring 15 cm Implants: 1. Leo accolade C size #4 standard offset stem 2. 46 mm outer diameter bipolar head, 28 mm +4 mm neck inner diameter head Anesthesia: NELLIE Surgeon: Julián Doe Field Sales Trainer #1: Diamond Ortiz Estimated Blood Loss (ml): 300 IV fluids (ml): 1,200 Pathology: none sent Condition: stable Disposition: PACU Indications for Procedure: I met with the patient and their family to discuss treatment options. The pat ient has a displaced femoral neck fracture and based on their age, activity level, and medical comorbidities I recommended a hip hemiarthroplasty to facilitate early mobilization. My recommendation was to perform the hemiarthroplasty through a direct anterior approach to help lower the risk of dislocation and improve postoperative recovery and use cemented fixation of the femoral component to reduce the risk of fracture and postoperative thigh pain. We discussed the potential risks and complications of a hemiarthroplasty for displaced femoral neck fracture at length. Risks discussed include are certainly not limited to risks from anesthesia, superficial infection requiring local wound care and possibly surgical debridement, deep periprosthetic joint infection and the treatment for this, damage to local blood vessels or nerves particularly the lateral femoral cutaneous nerve, intraoperative fracture, postoperative periprosthetic fracture, leg length discrepancy, hip dislocation, aseptic loosening, groin pain, thigh pain, progression of arthritis requiring conversion to total hip arthroplasty, complications related to cementing the component, an inability to regain preinjury level of function, DVT, PE, acute coronary event, stroke, pneumonia, urinary tract infection, failure to thrive, and possibly . The patient and their family understand that while these are the most common complications other less common complications are possible. They provided their verbal and written consent to go forward with surgery. Description of Procedure: The patient was identified in the preoperative holding area and the correct hip was marked with my initials. I reviewed the procedure and consent with the patient. All of their questions were answered. The patient was then brought back into the operating room by anesthesia. While on the gurney anesthesia was administered by the anesthesia team. Preoperative antibiotics and tranexamic acid were also given. After the patient was under anesthesia I examined their ankles to determine their preoperative leg length discrepancy. The skin over the anterior aspect of the hip was shaved to remove hair over the site of planned incision. Both feet and ankles were padded with webril and boots for the [place] were applied. The patient was then carefully transferred onto the [place] table. A perineal post was immediately placed. The arms were placed on arm holders and were well-padded. Both boots were secured to the spars on the [place] table. The patient was positioned so that the pelvis was centered over the post. Nonsterile drapes were applied. A timeout was performed identifying the correct patient, operative extremity, and procedure. At this point fluoroscopy was brought in to take preoperative images of the pelvis and operative hip. Using the standing AP pelvis from the office as a template, a comparable image was obtained with fluoroscopy. A metallic bar was used to create a bi-ischial line for use as a reference to leg length adjustments during the procedure. Global offset was also measured on both the operative and nonoperative leg. Fluoroscopy was then brought out and a pre-scrub using a chlorhexidine scrub brush was performed. Due to obesity the abdomen was taped to allow access to the anterior hip. The operative limb was then prepped and draped in the standard sterile fashion. An anterior longitudinal incision was made lateral and distal to the ASIS. The skin and subcutaneous tissues were incised sharply. The underlying tensor fascia was identified and incised in its midportion. The fascia was dissected free from the underlying muscle and the muscle belly was retracted. A blunt tipped cobra retractor was placed over the superior neck under the muscle fibers of the gluteus minimus. The deep enveloping fascia of the tensor was incised. The anterior leash of vessels were then identified and cauterized. The fascia between the rectus and the capsule was then incised and the pre-capsular fat was excised. A second Cobra was placed inferior to the neck. The interval between the rectus and iliocapsularis and the hip capsule was developed and a retractor was placed carefully over the anterior rim of the acetabulum. A T-shaped anterior capsulotomy was performed. A hemarthrosis consistent with a femoral neck fracture was identified. The superior capsular leaflet was left in place in the inferior capsular flap was excised. The Cobra retractors were placed intracapsularly. A displaced femoral neck fracture was then identified. We then made a femoral neck osteotomy according to preoperative and intraoperative templating and confirmed the level of the osteotomy using fluoroscopic imaging. The femoral head was removed, passed off to the back table, and sized. The superior capsular flap was excised. On inspection of the acetabulum there were minimal degenerative changes with intact cartilage. Attention was then turned to the femur. The remnant dorsal lateral capsule was excised. The short external rotators were visible and protected. A bone hook was used to confirm appropriate translation of the trochanter away from the acet abulum. The leg was then extended and adducted and the bone hook was used to elevate the femur for broaching. A box osteotome and blunt tipped canal sound was then utilized to gain access to the femoral canal. We then sequentially broached the femur in appropriate anteversion until torsional stability was achieved and the implant was felt to have reached the appropriate size to allow trialing. The neck cut was brought flush to the trial broach with a calcar planar. A trial neck and head were then placed onto the broach and the hip was atraumatically reduced under direct visualization. External rotation to 90 was performed to assess stability. Fluoroscopy was brought in. An AP and lateral fluoroscopic image of the proximal femur was obtained to assess position and fill of the trial broach. An AP of the pelvis was then obtained and matched to the preoperative image taken. A bi-ischial bar was then placed and measurements were taken to assess changes in length and offset. The hip was then carefully dislocated, the proximal femur was exposed, and the trial implants were removed. The proximal femur was then prepared for cementing. The canal was thoroughly irrigated with pulsatile lavage to remove blood and marrow contents. A cement restrictor was placed to a depth just distal to the tip of the final implant. Epinephrine-soaked gauze was then packed into the proximal femur. 2 bags of cement with antibiotics were then mixed using a centrifuge and placed into a cement gun. Anesthesia was notified that cementing was about to commence to make sure the patient was appropriately ventilated and hydrated. Once the cement had reached appropriate consistency, the cement gun was used to fill the canal in a retrograde fashion starting at the restrictor. Cement was then pressurized into the canal with a blue tipped assembler lay ups. The stem was then carefully introduced into the cement taking care to guide the implant into appropriate version. The stem was held in position until the cement had fully set. All extra cement was removed while the cement was hardening. The trunnion was cleansed and the final head was tapped into place to engage the Silver taper. The acetabulum was irrigated and visualized to be free of debris. The hip was carefully reduced. Stability was checked clinically with external rotation to 90 and there was no evidence of instability. Final fluoroscopic images were taken. The wound was then thoroughly irrigated and soaked with a dilute Betadine rinse for 3 minutes. 3 L of sterile saline was irrigated through the wound using pulsatile lavage. Local anesthetic cocktail was injected into the soft tissues around the surgical field. A deep drain was placed. The wound was then closed in layers. A sterile dressing was placed over the surgical incision and drain site - incision measured 15 cm and due to the patient's obesity and concern for hygiene issues an incisional wound VAC was placed. The drapes were taken down and the patient was carefully transferred off of the [place] table. Following removal of the boots the leg lengths felt acceptable. The patient was then taken to recovery room having tolerated the procedure well. Diamond Ortiz DO was required as a skilled stores assistant for patient positioning, surgical exposure, retraction, placement of implants, and closure of the surgical wound. PLAN: The patient can weight-bear as tolerated on the operative extremity. 2 doses of postoperative antibiotics. DVT prophylaxis with aspirin 81 mg twice a day based on preoperative risk stratification. Due to the patient's weight, BMI, and poor hygiene I would like to treat her with 2 weeks of low dose oral suppressive antibiotics due to her being a high risk arthroplasty patient. Physical therapy for gait training. Discontinue drain postoperative day #1 if output is less than 100 mL per shift.
[2021-10-13 11:07] LABS: Glucose,Whole Blood 227 mg/dL (75-99)
--- NOTE | 2021-10-13 11:16 | XR ---
EXAMINATION TYPE: XR Hip Limited RT, XR Hip Limited RT DATE OF EXAM: 10/13/2021 COMPARISON: 10/11/2021 HISTORY: 81 years Female. STUDY INDICATION GIVEN: Rt Hip-Ant . TECHNIQUE: Intraoperative fluoroscopy IMPRESSION: Intraoperative fluoroscopic images demonstrate the followin. Existing left hip arthroplasty. 2. Almanzar's catheter. 3. Right proximal femur displaced neck fracture pre-and post total right hip arthroplasty. Please refer to dedicated operative note from surgical team for complete details.
[2021-10-13] MEDS ORDERED: PHENYLEPHRINE-0.9% NACL SYG 1,000 MCG/10 ML SYRINGE IV ONE (11:23)
[2021-10-13] MEDS ORDERED: INSULIN ASPART (NovoLOG) 100 UNIT/ML VIAL SQ ONE (11:30)
[2021-10-13 16:20] LABS: Glucose,Whole Blood 268 mg/dL (75-99)
[2021-10-13 20:11] LABS: Glucose,Whole Blood 278 mg/dL (75-99)
--- NOTE | 2021-10-13 20:14 | P.PN ---
Subjective Progress Note Date: 10/13/21 81-year-old female with a history of diabetes and dementia who presented to the emergency department via EMS after sustaining a fall on her assisted living facility yesterday. X-rays were taken and a right femoral neck fracture was found. The patient states that she fell outside but according to the ER note she was found on the ground inside and was laying there for unknown amount of time. The patient states that she lives in "[place]". She also denies using a cane or walker normally. She denies any pain while laying in bed this morning. She denies any other injuries or hitting her head. CT of the head and neck in the ER yesterday were negative for fracture or bleed. The patient also does not remember her right hip hurting and does not remember fracturing her left hip a year and a half ago. Patient denies any cocaine of chest and shortness of breath UA is positive; patient has been placed on IV Rocephin; we will plan to monitor CBC; await urine culture results Objective - Vital Signs Vital signs: Vital Signs Temp 97.0 F L 10/13/21 10:52 Pulse 104 H 10/13/21 11:52 Resp 16 10/13/21 11:52 BP 113/61 10/13/21 11:52 Pulse Ox 96 10/13/21 11:52 Intake & Output 10/12/21 10/13/21 10/13/21 18:59 06:59 18:59 Intake Total 1500 Output Total 500 525 630 Balance -500 -525 870 Weight 100.244 kg Intake: IV 1500 Output: Urine 500 525 310 Estimated Blood Loss 320 Other: Voiding Method Indwelling Catheter Indwelling Catheter Indwelling Catheter # Bowel Movements 0 - Exam General appearance: Present: average body habitus, cooperative, no acute distress Eyes: Present: anicteric sclerae, EOMI, PERRLA, normal appearance Neck: Present: normal ROM. Absent: lymphadenopathy, rigidity, thyromegaly Carotids: negative: bruit present Thyroid: bilateral: normal size, negative: enlarged, nodule Respiratory: bilateral: CTA, negative: rales, rhonchi, wheezing - Cardiovascular: regular Heart sounds: normal: S1, S2 Abnormal Heart Sounds: Absent: systolic murmur, diastolic murmur - Gastrointestinal General gastrointestinal: Present: normal bowel sounds, soft. Absent: distended, organomegaly, tenderness - Genitourinary Genitourinary Comment(s): deferred Integumentary: Present: normal turgor. Absent: jaundiced, rash, ulcer Neurologic: Present: CNII-XII intact. Absent: focal deficits Musculoskeletal: Present: gait normal, strength equal bilaterally - Labs CBC & Chem 7: 10/11/21 18:13 10/11/21 18:13 Labs: Abnormal Lab Results - Last 24 Hours (Table) 10/12/21 10/12/21 10/13/21 Range/Units 16:43 20:45 07:19 POC Glucose (mg/dL) 181 H 200 H 184 H (75-99) mg/dL 10/13/21 Range/Units 11:03 POC Glucose (mg/dL) 227 H (75-99) mg/dL Assessment and Plan Assessment: 1. Right femoral neck fracture; orthopedic surgery on board; patient scheduled for OR this afternoon; pain control per your recommendations - Patient is cleared to proceed with surgery 2. Diabetes mellitus type 2; continue with home dose of Janumet 26845 tablets daily at bedtime; Lantus 25 units subcu daily at bedtime; monitor Accu-Cheks before meals and at bedtime with insulin sliding scale 3. Hypertension; lisinopril 2.5 mg daily 4. Dementia/depression; Aricept 10 mg daily at bedtime along with Namenda 10 mg by mouth daily at bedtime; Celexa 10 mg by mouth daily at bedtime 5. History of breast cancer; Arimidex 1 mg per daily at bedtime DVT prophylaxis; SCDs/subcu heparin once cleared by surgery CODE STATUS; full code
[2021-10-13] MEDS: SENNOSIDES-DOCUSATE SODIUM 1 EACH TAB PO SCH (21:37)
[2021-10-14] MEDS: SODIUM CHLORIDE 0.9% 1,000 ML IV SCH ×2 (03:15→15:55)
[2021-10-14 06:55] LABS: Glucose,Whole Blood 230 mg/dL (75-99)
[2021-10-14] MEDS: ASPIRIN 81 MG PO SCH ×2 (08:00→21:42)
[2021-10-14] MEDS: INSULIN ASPART (NovoLOG) 100 UNIT/ML VIAL SQ SCH ×4 (08:00→21:42)
[2021-10-14] MEDS: DOXYCYCLINE 100 MG CAP PO SCH ×2 (08:00→21:42)
--- NOTE | 2021-10-14 08:51 | FL ---
EXAMINATION TYPE: FL guidance operating room DATE OF EXAM: 10/13/2021 FLUOROSCOPY Fluoroscopy time of 29 seconds was used during anterior right hip replacement. 4 image/s document/s the procedure.
--- NOTE | 2021-10-14 09:01 | P.PN ---
Subjective Progress Note Date: 10/14/21 Principal diagnosis: Status post right hip hemiarthroplasty This is a 81 year-old female post right hip hemiarthroplasty. This is post-op day 1. The patient was evaluated at the bedside today. The patient denies nausea, vomiting, abdominal pain, shortness of breath, and chest pain this morning. She states her pain is controlled at this time. The patient has not been up with physical therapy. The Prevena wound vac has been alarming since yesterday. Objective - Vital Signs Vital signs: Vital Signs Temp 98.0 F 10/14/21 08:12 Pulse 57 L 10/14/21 08:12 Resp 16 10/14/21 02:00 BP 95/61 10/14/21 08:12 Pulse Ox 97 10/14/21 08:12 Intake & Output 10/13/21 10/14/21 10/14/21 18:59 06:59 18:59 Intake Total 1500 Output Total 1080 650 Balance 420 -650 Weight 100.244 kg Intake: IV 1500 Output: Urine 760 650 Estimated Blood Loss 320 Other: Voiding Method Indwelling Catheter Indwelling Catheter # Bowel Movements 0 - Exam The patient does not appear in acute distress. Alert and orientated x1. Dressing is clean dry and intact. Prevena wound vac changed today due to an error alert. New vac with a good seal. Hemovac removed without difficulty. Tip was intact. Incision appears fine with no erythema or active drainage. Calf is soft and nontender. Good foot and ankle motion without difficulty. Sensation and circulatory status is intact. - Labs CBC & Chem 7: 10/14/21 05:31 10/14/21 05:31 Labs: Abnormal Lab Results - Last 24 Hours (Table) 10/13/21 10/13/21 10/13/21 Range/Units 11:03 16:19 20:09 POC Glucose (mg/dL) 227 H 268 H 278 H (75-99) mg/dL 10/14/21 Range/Units 06:53 POC Glucose (mg/dL) 230 H (75-99) mg/dL Assessment and Plan (1) Fracture of femoral neck, right, closed Current Visit: Yes Status: Acute Code(s): S72.001A - FRACTURE OF UNSP PART OF NECK OF RIGHT FEMUR, INIT SNOMED Code(s): 682259348 (2) Diabetes mellitus Current Visit: Yes Status: Acute Code(s): E11.9 - TYPE 2 DIABETES MELLITUS WITHOUT COMPLICATIONS SNOMED Code(s): 13283255 (3) Dementia Current Visit: Yes Status: Acute Code(s): F03.90 - UNSPECIFIED DEMENTIA WITHOUT BEHAVIORAL DISTURBANCE SNOMED Code(s): 64714228 (4) Fall Current Visit: No Status: Acute Code(s): W19.XXXA - UNSPECIFIED FALL, INITIAL ENCOUNTER SNOMED Code(s): 9834139 Plan: 1. Continue pain control 2. Anticoagulation with Aspirin 3. Start physical therapy and ambulation 4. Anticipate discharge to skilled rehab upon discharge.
[2021-10-14 09:04] LABS: Basophils # (A) 0.02 X 10*3/uL (0.00-0.10); Basophils % (A) 0.2 %; Eosinophils # (A) 0.04 X 10*3/uL (0.04-0.35); Eosinophils % (A) 0.4 %; HCT 28.7 % (37.2-46.3); Immature Grans, Automated 0.7 %; Lymphocytes # (A) 1.42 X 10*3/uL (0.90-5.00); Lymphocytes % (A) 13.3 %; MCHC 31.4 g/dL (32.0-37.0); MCV 95.7 fL (80.0-97.0); Mean Platelet Volume 10.2 fL (9.5-12.2); Monocytes % (A) 9.4 %; NRBC Per 100 WBC 0 /100 WBCS (0.0-0.0); Neutrophils # (A) 8.11 X 10*3/uL (1.80-7.70); Platelet Count 165 X 10*3/uL (140-440); RDW 12.6 % (11.5-14.5); WBC 10.67 X 10*3/uL (4.50-10.00)
[2021-10-14 09:17] LABS: African American GFR (CKD) 89 (>60 ml/min/1.73 sqM); Anion Gap 3 mmol/L; Blood Urea Nitrogen 20 mg/dL (7-17); Calcium 8.3 mg/dL (8.4-10.2); Carbon Dioxide 25 mmol/L (22-30); Chloride 108 mmol/L (98-107); Glucose 225 mg/dL (74-99); Non-African American GFR(CKD) 77 (>60 ml/min/1.73 sqM); Sodium 136 mmol/L (137-145)
[2021-10-14 11:35] LABS: Glucose,Whole Blood 177 mg/dL (75-99)
--- NOTE | 2021-10-14 14:55 | P.PN ---
Subjective Progress Note Date: 10/14/21 81-year-old female with a history of diabetes and dementia who presented to the emergency department via EMS after sustaining a fall on her assisted living facility yesterday. X-rays were taken and a right femoral neck fracture was found. The patient states that she fell outside but according to the ER note she was found on the ground inside and was laying there for unknown amount of time. The patient states that she lives in "[place]". She also denies using a cane or walker normally. She denies any pain while laying in bed this morning. She denies any other injuries or hitting her head. CT of the head and neck in the ER yesterday were negative for fracture or bleed. The patient also does not remember her right hip hurting and does not remember fracturing her left hip a year and a half ago. Patient denies any cocaine of chest and shortness of breath UA is positive; patient has been placed on IV Rocephin; we will plan to monitor CBC; await urine culture results 10/14/2021 Patient is seen and evaluated in the bedside; reports feeling hungry; patient remains on a clear liquid diet Vital signs are reviewed and are stable Lab review reveals to PVC 10.6, hemoglobin 9.0, hematocrit 28.7 and platelet count of 165, sodium 136, potassium 4.0, BUN 20 with creatinine of 0.7 Hemoglobin is down to 9.0 from 13.6 preoperatively; we will monitor H&H closely. Plan to transfuse if hemoglobin is less than 8.0 We will advance diet to full liquid and await further recommendations from surgery Objective - Vital Signs Vital signs: Vital Signs Temp 98.0 F 10/14/21 08:12 Pulse 57 L 10/14/21 08:12 Resp 16 10/14/21 02:00 BP 95/61 10/14/21 08:12 Pulse Ox 97 10/14/21 08:12 Intake & Output 10/13/21 10/14/21 10/14/21 18:59 06:59 18:59 Intake Total 1500 Output Total 1080 650 Balance 420 -650 Weight 100.244 kg Intake: IV 1500 Output: Urine 760 650 Estimated Blood Loss 320 Other: Voiding Method Indwelling Catheter Indwelling Catheter # Bowel Movements 0 - Exam General appearance: Present: average body habitus, cooperative, no acute distress Eyes: Present: anicteric sclerae, EOMI, PERRLA, normal appearance Neck: Present: normal ROM. Absent: lymphadenopathy, rigidity, thyromegaly Carotids: negative: bruit present Thyroid: bilateral: normal size, negative: enlarged, nodule Respiratory: bilateral: CTA, negative: rales, rhonchi, wheezing - Cardiovascular: regular Heart sounds: normal: S1, S2 Abnormal Heart Sounds: Absent: systolic murmur, diastolic murmur - Gastrointestinal General gastrointestinal: Present: normal bowel sounds, soft. Absent: distended, organomegaly, tenderness - Genitourinary Genitourinary Comment(s): deferred Integumentary: Present: normal turgor. Absent: jaundiced, rash, ulcer Neurologic: Present: CNII-XII intact. Absent: focal deficits Musculoskeletal: Present: gait normal, strength equal bilaterally - Labs CBC & Chem 7: 10/14/21 05:31 10/14/21 05:31 Labs: Abnormal Lab Results - Last 24 Hours (Table) 10/13/21 10/13/21 10/13/21 Range/Units 11:03 16:19 20:09 POC Glucose (mg/dL) 227 H 268 H 278 H (75-99) mg/dL 10/14/21 Range/Units 06:53 POC Glucose (mg/dL) 230 H (75-99) mg/dL Assessment and Plan Assessment: 1. Right femoral neck fracture; orthopedic surgery on board; patient scheduled for OR this afternoon; pain control per your recommendations - Patient is cleared to proceed with surgery 2. Diabetes mellitus type 2; continue with home dose of Janumet 25288 tablets daily at bedtime; Lantus 25 units subcu daily at bedtime; monitor Accu-Cheks before meals and at bedtime with insulin sliding scale 3. Hypertension; lisinopril 2.5 mg daily 4. Dementia/depression; Aricept 10 mg daily at bedtime along with Namenda 10 mg by mouth daily at bedtime; Celexa 10 mg by mouth daily at bedtime 5. History of breast cancer; Arimidex 1 mg per daily at bedtime DVT prophylaxis; SCDs/subcu heparin once cleared by surgery CODE STATUS; full code
[2021-10-14 16:46] LABS: Glucose,Whole Blood 124 mg/dL (75-99)
[2021-10-14 20:35] LABS: Glucose,Whole Blood 159 mg/dL (75-99)
[2021-10-14] MEDS: SENNOSIDES-DOCUSATE SODIUM 1 EACH TAB PO SCH (21:42)
[2021-10-15] MEDS: SODIUM CHLORIDE 0.9% 1,000 ML IV SCH (06:24)
[2021-10-15 07:53] LABS: Glucose,Whole Blood 175 mg/dL (75-99)
[2021-10-15] MEDS: ASPIRIN 81 MG PO SCH (08:03)
[2021-10-15] MEDS: INSULIN ASPART (NovoLOG) 100 UNIT/ML VIAL SQ SCH ×3 (08:03→18:22)
[2021-10-15] MEDS: DOXYCYCLINE 100 MG CAP PO SCH (08:04)
[2021-10-15 10:14] LABS: Basophils # (A) 0.05 X 10*3/uL (0.00-0.10); Basophils % (A) 0.6 %; Eosinophils # (A) 0.46 X 10*3/uL (0.04-0.35); Eosinophils % (A) 5.4 %; HCT 30.2 % (37.2-46.3); HGB 9.1 g/dL (12.0-15.0); Immature Grans, Automated 0.7 %; Lymphocytes # (A) 2.27 X 10*3/uL (0.90-5.00); Lymphocytes % (A) 26.5 %; MCH 29.7 pg (27.0-32.0); MCHC 30.1 g/dL (32.0-37.0); MCV 98.7 fL (80.0-97.0); Mean Platelet Volume 10.2 fL (9.5-12.2); Monocytes # (A) 0.81 X 10*3/uL (0.20-1.00); Monocytes % (A) 9.4 %; NRBC Per 100 WBC 0 /100 WBCS (0.0-0.0); Neutrophils # (A) 4.93 X 10*3/uL (1.80-7.70); Neutrophils % (A) 57.4 %; Platelet Count 166 X 10*3/uL (140-440); RBC 3.06 X 10*6/uL (4.10-5.20); RDW 12.8 % (11.5-14.5); WBC 8.58 X 10*3/uL (4.50-10.00)
[2021-10-15 10:22] LABS: African American GFR (CKD) 99.8 (60.0-200.0); Anion Gap 9.6 mmol/L (10.00-18.00); BUN/Creat Ratio 21.83 Ratio (12.00-20.00); Blood Urea Nitrogen 13.1 mg/dL (9.0-27.0); Calcium 8.2 mg/dL (8.7-10.3); Carbon Dioxide 21.4 mmol/L (20.0-27.5); Non-African American GFR(CKD) 86.1 (60.0-200.0); Potassium 3.8 mmol/L (3.5-5.5)
[2021-10-15 11:59] LABS: Glucose,Whole Blood 202 mg/dL (75-99)
[2021-10-15 14:45] VITALS: BP 131/66; PULSE 71; RESP 16; TEMP 98.7
--- NOTE | 2021-10-15 15:37 | P.DS ---
Providers Date of admission: 10/11/21 21:01 Expected date of discharge: 10/15/21 Attending physician: Diamond Ortiz DO Consults: 10/11/21 21:02 Consult Physician Routine Consulting Provider: Marissa Pinzon Consult Reason/Comments: medicine consult Do you want consulting provider notified?: Yes Primary care physician: Addie [facility] Course: This is an 81-year-old female who is admitted to [facility] on 10/11/21 after a ground-level fall and sustaining injury to the right hip. X-rays in the emergency department revealed a right femoral neck fracture. She is admitted to our service for surgical intervention and care. Patient was taken to surgery for direct anterior right hip hemiarthroplasty on 10/13/21. The procedure was performed without complication or sequelae. The patient is doing fairly well postoperatively. Vital signs and labs are stable on postoperative day #2. Patient was examined bedside today. Patient states she is doing well and has no specific complaints. Patient states hier pain is well-controlled. She worked with physical therapy this morning. Patient is tolerating her diet well. She denies chest pain, shortness of breath, nausea, vomiting, fevers, chills. No new complaints or concerns on the day of discharge. On examination, the patient is sitting up in bed eating breakfast. She is alert and oriented 2. She answers questions appropriately. On inspection of the right hip, there is a Prevena wound VAC in place. There is mild swelling of the thigh, thigh is soft and compressible. Patient has good strength and ROM of the right ankle and toes. Motor and sensory function is intact of the right lower extremity. Dorsalis pedis pulse +2, right lower extremity is warm and well perfused. Calf is soft and non-tender. Patient is discharged to rehab today in good condition, pending medical clearance. Patient will follow-up with Dr. Doe in the office in one week for wound vac removal. Please see med rec for accurate list of discharge medication. Patient Condition at Discharge: Fair Plan - Discharge Summary Discharge Rx Participant: No New Discharge Prescriptions: New Docusate [Colace] 100 mg PO BID #60 capsule Doxycycline Monohydrate 100 mg PO BID 14 Days #28 cap Magnesium Hydroxide [Milk of Magnesia Concentrate] 2,400 mg PO DAILY PRN ml PRN Reason: Constipation Sennosides-Docusate Sodium [Senokot-S] 2 each PO HS tab Aspirin 81 mg PO BID 30 Days #60 tab Continue sitaGLIPtin PHOS/metFORMIN HCL [Janumet 50-500 mg Tablet] 2 tab PO HS lisinopriL [Zestril] 2.5 mg PO HS Insulin Glargine,Hum.rec.anlog [Lantus Solostar Pen] 25 unit SQ HS Anastrozole [Arimidex] 1 mg PO HS Memantine [Namenda] 10 mg PO HS Donepezil [Aricept] 10 mg PO HS Citalopram Hydrobromide [CeleXA] 10 mg PO HS Discharge Medication List Anastrozole [Arimidex] 1 mg PO HS 06/12/20 [History] Insulin Glargine,Hum.rec.anlog [Lantus Solostar Pen] 25 unit SQ HS 06/12/20 [History] lisinopriL [Zestril] 2.5 mg PO HS 06/12/20 [History] sitaGLIPtin PHOS/metFORMIN HCL [Janumet 50-500 mg Tablet] 2 tab PO HS 06/12/20 [History] Citalopram Hydrobromide [CeleXA] 10 mg PO HS 10/11/21 [History] Donepezil [Aricept] 10 mg PO HS 10/11/21 [History] Memantine [Namenda] 10 mg PO HS 10/11/21 [History] Aspirin 81 mg PO BID 30 Days #60 tab 10/15/21 [Rx] Docusate [Colace] 100 mg PO BID #60 capsule 10/15/21 [Rx] Doxycycline Monohydrate 100 mg PO BID 14 Days #28 cap 10/15/21 [Rx] Magnesium Hydroxide [Milk of Magnesia Concentrate] 2,400 mg PO DAILY PRN ml 10/15/21 [Rx] Sennosides-Docusate Sodium [Senokot-S] 2 each PO HS tab 10/15/21 [Rx] Follow up Appointment(s)/Referral(s): Addie García III, MD [Primary Care Provider] - 1-2 days Julián Doe MD [Medical Doctor] - 1 Week Activity/Diet/Wound Care/Special Instructions: Weight bear as tolerated on operative leg with a walker. Keep Prevena wound vac in place until follow-up appointment. Aspirin 81mg BID x 4 weeks for blood clot prevention. Doxycycline 100mg BID x 2 weeks for wound healing prophylaxis. Follow-up in the office with Dr. Doe with one week. Call the office with any questions or concerns, Discharge Disposition: TRANSFER TO SNF/F
--- NOTE | 2021-10-15 15:46 | P.PN ---
Subjective Progress Note Date: 10/15/21 81-year-old female with a history of diabetes and dementia who presented to the emergency department via EMS after sustaining a fall on her assisted living facility yesterday. X-rays were taken and a right femoral neck fracture was found. The patient states that she fell outside but according to the ER note she was found on the ground inside and was laying there for unknown amount of time. The patient states that she lives in "[place]". She also denies using a cane or walker normally. She denies any pain while laying in bed this morning. She denies any other injuries or hitting her head. CT of the head and neck in the ER yesterday were negative for fracture or bleed. The patient also does not remember her right hip hurting and does not remember fracturing her left hip a year and a half ago. Patient denies any cocaine of chest and shortness of breath UA is positive; patient has been placed on IV Rocephin; we will plan to monitor CBC 10/14/2021 Patient is seen and evaluated in the bedside; reports feeling hungry; patient remains on a clear liquid diet Vital signs are reviewed and are stable Lab review reveals to PVC 10.6, hemoglobin 9.0, hematocrit 28.7 and platelet count of 165, sodium 136, potassium 4.0, BUN 20 with creatinine of 0.7 Hemoglobin is down to 9.0 from 13.6 preoperatively; we will monitor H&H closely. Plan to transfuse if hemoglobin is less than 8.0 We will advance diet to full liquid and await further recommendations from surgery 10/15/2021 Patient is seen and evaluated and follow-up currently being closely monitored and admitted under orthopedic surgery after a fall and underwent right femoral neck fracture repair. White blood count improved and is 8.58 and hemoglobin is stable at 9.1, BMP within normal limits and blood sugars mildly elevated re commending to continue with Accu-Cheks before meals and at bedtime and consistent carb diet. Patient was started on IV ceftriaxone for possible acute urinary tract infection and patient denies any burning or frequency with urination and also has been started on oral doxycycline by orthopedic services and will continue. Recommend close outpatient follow-up with primary care provider and repeat urinalysis in the outpatient setting. Patient is afebrile. Patient denies any chest pain or shortness of breath. Patient encouraged to increase activity as tolerated. Recommend continue with incentive spirometer at least 10 times every hour while awake. Encouraged increase activity and continued PT/OT therapy. Also ECF being planned today. Review of systems: Constitutional: No reports of fatigue, fever, or chills Cardiovascular: No reports of chest pain or palpitations Respiratory: No reports of shortness of breath or cough GI: reports of nausea, no reports of of vomiting, patient is passing gas : No reports of dysuria or retention Neurovascular: reports of generalized weakness, reports right hip pain All medications have been reviewed Active Medications Hydrocodone Bitart/Acetaminophen (Hydrocodone/Apap 5-325mg 1 Each Tab) 1 each PO Q4HR PRN PRN Reason: Pain Scale 1 to 5 Hydrocodone Bitart/Acetaminophen (Hydrocodone/Apap 5-325mg 1 Each Tab) 2 each PO Q6HR PRN PRN Reason: Pain Scale 6 to 10 Aspirin (Aspirin 81 Mg) 81 mg PO BID [facility] Last Admin: 10/15/21 08:03 Dose: 81 mg Documented by: Doxycycline Monohydrate (Doxycycline 100 Mg Cap) 100 mg PO BID [facility] Last Admin: 10/15/21 08:04 Dose: 100 mg Documented by: Hydromorphone HCl (Hydromorphone 0.2 Mg/1 Ml Syringe) 0.2 mg IVP Q3HR PRN PRN Reason: Pain Scale 4 to 6 Hydromorphone HCl (Hydromorphone 1 Mg/Ml 1 Ml Syringe) 0.125 mg IVP Q3HR PRN PRN Reason: Pain Scale 1 to 3 Hydromorphone HCl (Hydromorphone 1 Mg/Ml 1 Ml Syringe) 0.5 mg IVP Q3HR PRN PRN Reason: Pain Scale 7 to 10 Sodium Chloride (Saline 0.9%) 1,000 mls @ 75 mls/hr IV .[id number] [facility] Last Admin: 10/15/21 06:24 Dose: 75 mls/hr Documented by: Ceftriaxone Sodium 2 gm/ (Sodium Chloride) 50 mls @ 100 mls/hr IVPB Q24HR [facility] Last Admin: 10/15/21 08:04 Dose: 100 mls/hr Documented by: Insulin Aspart (Insulin Aspart (Novolog) 100 Unit/Ml Vial) 0 unit SQ ACHS [facility]; Protocol Last Admin: 10/15/21 08:03 Dose: 2 unit Documented by: Magnesium Hydroxide (Magnesium Hydroxide 2,400 Mg/10 Ml Cup) 2,400 mg PO DAILY PRN PRN Reason: Constipation Morphine Sulfate (Morphine Sulfate 4 Mg/Ml Syringe) 4 mg IV Q4HR PRN PRN Reason: Severe Pain Last Admin: 10/13/21 05:01 Dose: 4 mg Documented by: Naloxone HCl (Naloxone 0.4 Mg/Ml 1 Ml Vial) 0.2 mg IV Q2M PRN PRN Reason: Opioid Reversal Senna/Docusate Sodium (Sennosides-Docusate Sodium 1 Each Tab) 2 each PO HS [facility] Last Admin: 10/14/21 21:42 Dose: 2 each Documented by: Tramadol HCl (Tramadol 50 Mg Tab) 50 mg PO Q6HR PRN PRN Reason: Pain Scale 1 to 5 PHYSICAL EXAMINATION: GENERAL: The patient is alert and oriented x4, Well developed, well nourished. HEENT: Pupils are round and equally reacting to light. EOMI. does have scleral icterus. No conjunctival pallor. Normocephalic, atraumatic. No pharyngeal erythema. No thyromegaly. CARDIOVASCULAR: S1 and S2 muffled PULMONARY: diminished breath sounds bilaterally with no wheezing or rhonchi no an. ABDOMEN: soft. Nontender on exam. obese. non-distended, normoactive bowel sounds. No palpable organomegaly. MUSCULOSKELETAL: No joint swelling or deformity. EXTREMITIES: No cyanosis, clubbing, or pedal edema. Right hip surgical dressing is intact NEUROLOGICAL: Gross neurological examination did not reveal any focal deficits. Diffuse weakness SKIN: No rashes. Assessment: Right femoral neck fracture Fall status post direct anterior right hip huber-arthroplasty Diabetes mellitus type 2 Possible acute urinary tract infection, present on admission Hypertension Dementia/depression History of breast cancer GI prophylaxis DVT prophylaxis Full code Plan: Recommend to continue with current medications and management per orthopedic services. Patient has been seen and evaluated by PT/OT therapy recommending rehab and patient is scheduled to be discharged to [facility] today. Appropriate home medications resumed and recommend to continue monitoring Accu-Cheks before meals and at bedtime and use sliding scale as needed. Patient tolerating diet with no reports of nausea or vomiting noted. Patient was maintained on IV ceftriaxone for possible acute urinary tract infection although denying any pain, frequency, dysuria and has been treated with IV ceftriaxone and patient will continue on oral doxycycline per orthopedic services. Recommend continue with incentive spirometer use at least 10 times every hour while awake and also patient will be continued on consistent carb diet. The impression and plan of care has been dictated by Mikayla Pryor, nurse practitioner as directed. MD Won I have performed a history and examination and MDM of this patient, discussed the same with the dictator, and agree with the dictator's assessment and plan as written ,documented as a scribe. Based on total visit time, I have performed more than 50% of the visit. Any additional findings or plans will be noted. Objective - Vital Signs Vital signs: Vital Signs Temp 99.0 F 10/15/21 03:48 Pulse 73 10/15/21 03:48 Resp 16 10/15/21 03:48 BP 132/74 10/15/21 03:48 Pulse Ox 95 10/15/21 03:48 Intake & Output 10/14/21 10/15/21 10/15/21 18:59 06:59 18:59 Output Total 400 500 Balance -400 -500 Output: Drainage 100 Right Hip 100 Urine 300 500 Other: Voiding Method Indwelling Catheter Indwelling Catheter - Labs CBC & Chem 7: 10/15/21 04:27 10/15/21 04:27 Labs: Abnormal Lab Results - Last 24 Hours (Table) 10/14/21 10/14/21 10/14/21 Range/Units 11:33 16:42 20:32 POC Glucose (mg/dL) 177 H 124 H 159 H (75-99) mg/dL 10/15/21 Range/Units 07:51 POC Glucose (mg/dL) 175 H (75-99) mg/dL
[2021-10-15 17:04] LABS: Glucose,Whole Blood 182 mg/dL (75-99)
== END 2021-10-15 18:33 | DRG 522 ==
LOC: EC 17:15 → 4SSUR 21:01
PROVIDERS: ADMIT Orthopaedic Surgery Hand Surgery; ATTEND Orthopaedic Surgery Hand Surgery
PROC: 0SRR019 Replacement of Right Hip Joint, Femoral Surface with Metal Synthetic Substitute, Cemented, Open Approach (ICD-10-PCS; principal; 2021-10-13 08:00)
DX: S72.001A Fracture of unspecified part of neck of right femur, initial encounter for closed fracture (principal); F03.91 Unspecified dementia, unspecified severity, with behavioral disturbance; N39.0 Urinary tract infection, site not specified; W18.30XA Fall on same level, unspecified, initial encounter; F32.A Depression, unspecified; I49.3 Ventricular premature depolarization; I10 Essential (primary) hypertension; E11.9 Type 2 diabetes mellitus without complications; Z85.3 Personal history of malignant neoplasm of breast; Z79.899 Other long term (current) drug therapy; Z79.4 Long term (current) use of insulin; Z96.642 Presence of left artificial hip joint; E66.9 Obesity, unspecified; Z68.35 Body mass index [BMI] 35.0-35.9, adult; Z86.73 Personal history of transient ischemic attack (TIA), and cerebral infarction without residual deficits; Z87.01 Personal history of pneumonia (recurrent); Z20.822 Contact with and (suspected) exposure to COVID-19; Z98.890 Other specified postprocedural states
CPT/HCPCS: 36415; 70450; 71045; 72125; 73501; 73502; 80048; 80053; 81001; 82550; 83735; 84484; 85025; 85610; 85730; 86850; 86900; 86901; 87635; 88305; 88311; 93005; 99285